=== PATIENT | male | born 1985 | race Caucasian/White ===

== ENCOUNTER 2018-04-19 21:36 | Emergency (ER) | payer OTHER ==
[2018-04-19 21:59] VITALS: BP 145/96
[2018-04-19] MEDS ORDERED: Ciprofloxacin TAB* 500 MG PO ONE ×2 (23:00→23:03)
--- NOTE | 2018-04-19 23:04 | UC ---
Complaint Male HPI - HPI Summary HPI Summary: 33 yo WM p/w left flank pain associated with dysuria, urinary frequency and urgency, chills x 2-3 days - History of Current Complaint Chief Complaint: UCGU Stated Complaint: BACK PAIN Time Seen by Provider: 04/19/18 22:12 Hx Obtained From: Patient Onset/Duration: Sudden Onset Timing: Lasting Days Severity Initially: Moderate Severity Currently: Moderate Pain Intensity: 8 - Allergies/Home Medications Allergies/Adverse Reactions: Allergies Allergy/AdvReac Type Severity Reaction Status Date / Time No Known Allergies Allergy Verified 04/19/18 21:59 PMH/Surg Hx/FS Hx/Imm Hx - Additional Past Medical History Additional PMH: none Previously Healthy: Yes - Surgical History Surgical History: Yes Surgery Procedure, Year, and Place: cleft palate repaired at 18 months of age. - Family History Known Family History: Positive: Hypertension - Social History Alcohol Use: Occasionally Substance Use Type: None Smoking Status (MU): Former Smoker Have You Smoked in the Last Year: No When Did the Patient Quit Smoking/Using Tobacco: 2007 - Immunization History Most Recent Influenza Vaccination: never Most Recent Tetanus Shot: UTD Review of Systems Constitutional: Negative Skin: Negative Eyes: Negative ENT: Negative Respiratory: Negative Cardiovascular: Negative Gastrointestinal: Negative Genitourinary: Dysuria, Frequency, Urgency, Other - foul smelling urine Motor: Negative Neurovascular: Negative Musculoskeletal: Negative Neurological: Negative Psychological: Negative All Other Systems Reviewed And Are Negative: Yes Physical Exam Triage Information Reviewed: Yes Appearance: Pain Distress Vital Signs: Initial Vital Signs Temp 36.5 C 04/19/18 21:56 Pulse 63 04/19/18 21:56 Resp 12 04/19/18 21:56 BP 145/96 04/19/18 21:56 Pulse Ox 97 04/19/18 21:56 Vital Signs Reviewed: Yes ENT Exam: Normal Neck: Positive: Supple Respiratory Exam: Normal Cardiovascular Exam: Normal Cardiovascular: Positive: RRR Abdomen Description: Positive: Soft, CVA Tenderness (L), Other: - left flank tenderness Musculoskeletal Exam: Normal Neurological Exam: Normal Psychological Exam: Normal Skin Exam: Normal Complaint Male Course/Dx - Course Course Of Treatment: UE with trace LE, foul smelling urine with left CVA tenderness- will tx for new onset pyelonephritis - Differential Dx/Diagnosis Provider Diagnoses: left pyelonephritis. UTI in male Discharge - Sign-Out/Discharge Documenting (check all that apply): Discharge/Admit/Transfer - Discharge Plan Condition: Stable Disposition: HOME Prescriptions: Ciprofloxacin TAB* [Cipro 500 MG TAB*] 500 mg PO BID 14 Days #28 tab Patient Education Materials: Urinary Tract Infection in Men (ED), Kidney Infection (ED) Additional Instructions: drink large amount of fluids, take medication as directed - Billing Disposition and Condition Condition: STABLE Disposition: HOME
[2018-04-19] MEDS ORDERED: HYDROcodone/ACETAMIN 5-325 MG* 1 TAB PO ONE (23:08)
[2018-04-19] MEDS ORDERED: Ondansetron ODT TAB* 4 MG PO ONE ×2 (23:13→23:39)
[2018-04-19] MEDS ORDERED: Ondansetron INJ* 2 MG/ML VIAL IM ONE (23:14)
== END 2018-04-19 23:55 | disposition home or self-care (01) ==
LOC: UCEAST 21:36
DX: N12 Tubulo-interstitial nephritis, not specified as acute or chronic (principal); N39.0 Urinary tract infection, site not specified; Z87.891 Personal history of nicotine dependence
CPT/HCPCS: 81003; 87086; 96372; 99212; A9270-GY; G0463; J2405

== ENCOUNTER 2018-04-20 03:39 | Emergency (ER) | payer OTHER ==
[2018-04-20] MEDS ORDERED: NS 0.9% 1000 ML* 1,000 ML IV ONE (04:00)
[2018-04-20] MEDS ORDERED: Ketorolac INJ* 30 MG/ML 1 ML VIAL IV ONE (04:00)
[2018-04-20] MEDS ORDERED: HYDROmorphone INJ* 2 MG/ML CARPUJECT SYRINGE IV SLOW PU ONE (04:00)
[2018-04-20] MEDS ORDERED: Metoclopramide IV* 5 MG/ML 2 ML VIAL IV ONE (04:00)
[2018-04-20 04:20] LABS: ABS Basophils 0 10^3/ul (0-0.2); ABS Eosinophils 0 10^3/ul (0-0.6); ABS Monocytes 0.6 10^3/ul (0-0.8); ABS Neutrophils 8.7 10^3/ul (1.5-7.7); ABS Nucleated RBC 0 10^3/ul; Eosinophil % 0.1 % (0-6); Hematocrit 43 % (42-52); Hemoglobin 14.9 g/dl (14.0-18.0); Lymphocyte % 9.7 % (25-47); Mean Corpuscular HGB Conc 35 g/dl (31-36); Mean Corpuscular Hemoglobin 31 pg (27-31); Mean Corpuscular Volume 87 fL (80-94); Mean Platelet Volume 7.9 um3 (7.4-10.4); Nucleated Red Blood Cells % 0; Platelet Count 249 10^3/ul (150-450); Red Blood Count 4.88 10^6/ul (4.0-5.4); Red Cell Distribution Width 13 % (10.5-15); White Blood Count 10.3 10^3/ul (3.5-10.8)
[2018-04-20 04:29] LABS: Urine Appearance Clear; Urine Blood Negative (Negative); Urine Color Yellow; Urine Ketones Trace (Negative); Urine Protein Negative (Negative); Urine Urobilinogen Negative (Negative)
[2018-04-20 04:32] LABS: EGFR Non-African American 44.6 (>60)
--- NOTE | 2018-04-20 05:44 | ED ---
Christina Berg Elizabeth, scribed for Le Islas MD on 04/20/18 at 0411 . GI/ HPI - HPI Summary HPI Summary: This patient is a 33 year old M presenting to [facility] with a chief complaint of left flank pain since 1 day ago. The patient was seen at Urgent Care 1 day ago for the same symptoms. The patient rates the pain 9/10 in severity. Symptoms aggravated by nothing. Symptoms alleviated by nothing. Patient reports diaphoresis, vomiting, feeling of bladder fullness but inability to void. - History of Current Complaint Chief Complaint: EDFlankPain Time Seen by Provider: 04/20/18 03:50 Stated Complaint: VOMITING Hx Obtained From: Patient Onset/Duration: Started Days Ago - 1 day ago Timing: Constant, Lasting Hours Severity: Moderate Current Severity: Moderate Pain Intensity: 9 Location of Pain: Flank - left flank Associated Signs and Symptoms: Positive: Vomiting, Diaphoresis, Flank Pain - left flank pain, Other: - inability to voi Aggravating Factor(s): Nothing Alleviating Factor(s): Nothing - Allergy/Home Medications Allergies/Adverse Reactions: Allergies Allergy/AdvReac Type Severity Reaction Status Date / Time No Known Allergies Allergy Verified 04/20/18 04:08 PMH/Surg Hx/FS Hx/Imm Hx Endocrine/Hematology History: Denies: Hx Diabetes, Hx Thyroid Disease Cardiovascular History: Denies: Hx Hypertension Respiratory History: Reports: Hx Asthma - uses albuterol as needed Denies: Hx Chronic Obstructive Pulmonary Disease (COPD) GI History: Denies: Hx Ulcer - Surgical History Surgery Procedure, Year, and Place: cleft palate repaired at 18 months of age. Infectious Disease History: No Infectious Disease History: Denies: Hx Hepatitis, Hx Human Immunodeficiency Virus (HIV), History Other Infectious Disease, Traveled Outside the [place] in Last 30 Days - Family History Known Family History: Positive: Hypertension - Social History Alcohol Use: Occasionally Substance Use Type: Reports: None Smoking Status (MU): Former Smoker Have You Smoked in the Last Year: No Review of Systems Positive: Skin Diaphoresis Negative: Epistaxis Negative: Chest Pain Positive: Vomiting Positive: flank pain - left flank pain, other - inability to void All Other Systems Reviewed And Are Negative: Yes Physical Exam - Summary Physical Exam Summary: VITAL SIGNS: Reviewed. GENERAL: ~Patient is a well-developed and nourished male who is lying comfortable in the stretcher. Patient is not in any acute respiratory distress. HEAD AND FACE: No signs of trauma. No ecchymosis, hematomas or skull depressions. No sinus tenderness. EYES: PERRLA, EOMI x 2, No injected conjunctiva, no nystagmus. EARS: Hearing grossly intact. Ear canals and tympanic membranes are within normal limits. MOUTH: Oropharynx within normal limits. NECK: Supple, trachea is midline, no adenopathy, no JVD, no carotid bruit, no c- spine tenderness, neck with full ROM. CHEST: Symmetric, no tenderness at palpation LUNGS: Clear to auscultation bilaterally. No wheezing or crackles. CVS: Regular rate and rhythm, S1 and S2 present, no murmurs or gallops appreciated. ABDOMEN: Soft. Left CVA tenderness. No signs of distention. No rebound no guarding, and no masses palpated. Bowel sounds are normal. EXTREMITIES: FROM in all major joints, no edema, no cyanosis or clubbing. NEURO: Alert and oriented x 3. No acute neurological deficits. Speech is normal and follows commands. SKIN: Dry and warm Triage Information Reviewed: Yes Vital Signs On Initial Exam: Initial Vitals Temp Pulse Resp BP Pulse Ox 97.1 F 63 22 135/93 100 04/20/18 03:41 04/20/18 03:41 04/20/18 03:41 04/20/18 03:41 04/20/18 03:41 Vital Signs Reviewed: Yes Diagnostics - Vital Signs Vital Signs Temp Pulse Resp BP Pulse Ox 04/20/18 03:41 97.1 F 63 22 135/93 100 - Laboratory Result Diagrams: 04/20/18 04:06 04/20/18 04:06 Lab Statement: Any lab studies that have been ordered have been reviewed, and results considered in the medical decision making process. - CT CT Abd/Pelvis CT Interpretation: Positive (See Comments) - Atrophic, scarred right kidney containing punctate stones. No ureterolithiasis or obstructive uropathy bilaterally. No bladder calculi. Dr. Islas has reviewed this report. CT Interpretation Completed By: Radiologist Re-Evaluation - Re-Evaluation 1st re-evaluation Re-Evaluation Time: 05:29 Change: Improved Comment: Discussed imaging and lab results with the patient. The patient is feeling better after being given pain medication. GIGU Course/Dx - Course Course Of Treatment: CT Abd/Pelvis reveals, per radiologist, atrophic, scarred right kidney containing punctate stones. No ureterolithiasis or obstructive uropathy bilaterally. ED physician has reviewed this radiology report. Test results with no significant abnormalities except for elevated creatinine. In the ED course the patient was given IV fluids, Dilaudid, Toradol, and Reglan.The lab and imaging results failed to explain his pain. Follow up with pcp and mechanical maintenance foreman. Patient will be discharged home with dx of renal insufficiency and flank pain and with follow up from Dr. Quevedo, mechanical maintenance foreman, and primary care physician. The patient is agreeable with this plan. - Diagnoses Provider Diagnoses: Renal insufficiency, Flank pain Discharge - Sign-Out/Discharge Documenting (check all that apply): Discharge/Admit/Transfer - Discharge Plan Condition: Stable Disposition: HOME Patient Education Materials: Flank Pain (ED) Referrals: [facility] REFERRAL [Outside] - 2 Days Georgi Peña MD [Medical Doctor] - 1 Day Additional Instructions: Follow up with Dr. Peña, mechanical maintenance foreman, in 1 day. Return to the emergency department with any new or worsening symptoms. The documentation as recorded by the Christina hay Elizabeth accurately reflects the service I personally performed and the decisions made by , Le Islas MD.
[2018-04-20 06:21] VITALS: BP 117/64
--- NOTE | 2018-04-20 08:08 | RAD ---
CLINICAL HISTORY: Left flank pain with vomiting COMPARISON: August 07, 2012 TECHNIQUE: Multiple contiguous axial CT scans were obtained of the abdomen and pelvis, without intravenous contrast enhancement. Coronal and sagittal multiplanar reformations are submitted for review. Oral contrast was not administered. FINDINGS: The study is limited by the lack of intravenous contrast. This limits evaluation of the solid organs and vasculature. LUNG BASES: The lung bases are clear. LIVER: The liver is normal in shape, size, contour, and attenuation. BILE DUCTS: There is no intrahepatic or extrahepatic biliary dilatation. GALLBLADDER: The gallbladder is normal, without pericholecystic inflammatory change. PANCREAS: The pancreas is normal, without mass or ductal dilatation. SPLEEN: Normal in size and appearance. UPPER GI TRACT: Evaluation of the gastrointestinal tract is limited by incomplete gastric distention. The upper GI tract is unremarkable. SMALL BOWEL AND MESENTERY: The small bowel is normal in contour, course, and caliber. There is no obstruction or dilatation. COLON: The colon is normal in contour, course, caliber. There is no pericolonic inflammatory change. ADRENALS: Normal bilaterally. KIDNEYS: The right kidney is atrophic/hypoplastic, stable from the previous examination. There is no appreciable hydronephrosis or nephrolithiasis. BLADDER: The bladder is smooth in contour. PELVIC ORGANS: The prostate gland is normal. The seminal vesicles are symmetric. Vascular calcifications are noted in the pelvis. AORTA: The aorta is normal. IVC: Unremarkable LYMPH NODES: There is no lymphadenopathy by size criteria. ABDOMINAL WALL: There is no evidence for abdominal wall hernia. BONES AND SOFT TISSUES: Unremarkable OTHER: None IMPRESSION: NO APPRECIABLE HYDRONEPHROSIS OR NEPHROLITHIASIS.
== END 2018-04-20 06:22 | disposition home or self-care (01) ==
LOC: ED 03:39
DX: N28.9 Disorder of kidney and ureter, unspecified (principal); R10.9 Unspecified abdominal pain; N26.1 Atrophy of kidney (terminal); R79.89 Other specified abnormal findings of blood chemistry; Z87.891 Personal history of nicotine dependence
CPT/HCPCS: 36415; 74176; 80053; 81003; 83735; 85025; 86140; 96361; 96374; 96375; 99283; J1170; J1885; J2765

== ENCOUNTER 2018-04-20 22:06 | Observation (INO) | payer OTHER ==
[2018-04-20 22:41] LABS: Urine Appearance Clear; Urine Blood Negative (Negative); Urine Color Yellow; Urine Ketones 1+ (Negative); Urine Protein Negative (Negative); Urine Specific Gravity 1.012 (1.010-1.030); Urine Urobilinogen Negative (Negative)
[2018-04-21] MEDS ORDERED: NS 0.9% 1000 ML* 1,000 ML IV ONE (00:12)
[2018-04-21] MEDS ORDERED: Morphine INJ* 4 MG/ML 1 ML CARPUJECT IV ONE (00:12)
[2018-04-21] MEDS ORDERED: Pantoprazole IV* 40 MG IV ONE (00:12)
[2018-04-21] MEDS ORDERED: Metoclopramide IV* 5 MG/ML 2 ML VIAL IV ONE (00:12)
[2018-04-21 00:33] LABS: ABS Basophils 0 10^3/ul (0-0.2); ABS Eosinophils 0 10^3/ul (0-0.6); ABS Monocytes 1.2 10^3/ul (0-0.8); ABS Neutrophils 15.1 10^3/ul (1.5-7.7); ABS Nucleated RBC 0 10^3/ul; Eosinophil % 0.2 % (0-6); Hematocrit 41 % (42-52); Hemoglobin 14.4 g/dl (14.0-18.0); Lymphocyte % 5.8 % (25-47); Mean Corpuscular HGB Conc 35 g/dl (31-36); Mean Corpuscular Hemoglobin 31 pg (27-31); Mean Corpuscular Volume 87 fL (80-94); Mean Platelet Volume 8.1 um3 (7.4-10.4); Nucleated Red Blood Cells % 0; Platelet Count 253 10^3/ul (150-450); Red Blood Count 4.71 10^6/ul (4.0-5.4); Red Cell Distribution Width 13 % (10.5-15); White Blood Count 17.4 10^3/ul (3.5-10.8)
[2018-04-21] MEDS ORDERED: Morphine VIAL* 4 MG/ML VIAL (1 ml vial) IV ONE (00:33)
[2018-04-21 00:46] LABS: EGFR Non-African American 44.3 (>60)
[2018-04-21] MEDS ORDERED: Ondansetron INJ* 2 MG/ML VIAL IV ONE (01:54)
[2018-04-21] MEDS ORDERED: Ondansetron ODT TAB* 4 MG ONE (01:56)
[2018-04-21] MEDS ORDERED: PROCHLORPERAZINE INJ 5 MG/ML 2 ML VIAL ONE (01:59)
[2018-04-21] MEDS ORDERED: PROCHLORPERAZINE INJ 5 MG/ML 2 ML VIAL IV ONE (02:01)
[2018-04-21] MEDS ORDERED: Iodixanol* (CONTRAST) 320 MG/ML 100 ML SDV IV ONE (03:01)
--- NOTE | 2018-04-21 04:41 | ED ---
Soledad Berg Rebecca, scribed for Le Islas MD on 04/21/18 at 0014 . Abdominal Pain/Male - HPI Summary HPI Summary: Pt is a 33 y/o M who presents to ED c/o L flank pain with N/V. 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 Pain is currently moderate, ranked 7/10. Sx aggravated by antiemetic (taken at 1999), alleviated by nothing. Prior similar episode yesterday for which he was treated by [facility] with Dilaudid, Toradol, Reglan and fluids which improved his sx and given a Dx of flank pain and renal insufficiency. Confirms that he was well all day today. No similar instances prior to yesterday's. Unsure of last BM - suspects it was yesterday. - History of Current Complaint Chief Complaint: EDFlankPain Stated Complaint: VOMITING/ABD PAIN Time Seen by Provider: 04/20/18 23:48 Hx Obtained From: Patient Onset/Duration: Lasting Hours, Still Present Severity Currently: Moderate Pain Intensity: 7 Pain Scale Used: 0-10 Numeric Location: Flank - Left Aggravating Factor(s): Other: - Antiemetic Alleviating Factor(s): Nothing Associated Signs And Symptoms: Positive: Nausea, Vomiting Similar Episode/Dx As:: Yesterday's episode - Allergies/Home Medications Allergies/Adverse Reactions: Allergies Allergy/AdvReac Type Severity Reaction Status Date / Time No Known Allergies Allergy Verified 04/20/18 22:14 PMH/Surg Hx/FS Hx/Imm Hx Endocrine/Hematology History: Denies: Hx Diabetes, Hx Thyroid Disease Cardiovascular History: Denies: Hx Hypertension Respiratory History: Reports: Hx Asthma - uses albuterol as needed Denies: Hx Chronic Obstructive Pulmonary Disease (COPD) GI History: Denies: Hx Ulcer - Surgical History Surgery Procedure, Year, and Place: cleft palate repaired at 18 months of age. Infectious Disease History: No Infectious Disease History: Denies: Hx Hepatitis, Hx Human Immunodeficiency Virus (HIV), History Other Infectious Disease, Traveled Outside the [place] in Last 30 Days - Family History Known Family History: Positive: Hypertension - Social History Alcohol Use: Occasionally Substance Use Type: Reports: None Smoking Status (MU): Former Smoker Have You Smoked in the Last Year: No Review of Systems Negative: Fever Positive: Vomiting, Nausea Positive: flank pain - Left All Other Systems Reviewed And Are Negative: Yes Physical Exam - Summary Physical Exam Summary: VITAL SIGNS: Reviewed. GENERAL: ~Patient is a well-developed and nourished male who is lying comfortable in the stretcher. Patient is not in any acute respiratory distress. HEAD AND FACE: No signs of trauma. No ecchymosis, hematomas or skull depressions. No sinus tenderness. EYES: PERRLA, EOMI x 2, No injected conjunctiva, no nystagmus. EARS: Hearing grossly intact. Ear canals and tympanic membranes are within normal limits. MOUTH: Oropharynx within normal limits. NECK: Supple, trachea is midline, no adenopathy, no JVD, no carotid bruit, no c- spine tenderness, neck with full ROM. CHEST: Symmetric, no tenderness at palpation LUNGS: Clear to auscultation bilaterally. No wheezing or crackles. CVS: Regular rate and rhythm, S1 and S2 present, no murmurs or gallops appreciated. ABDOMEN: Soft, LLQ and L CVA tenderness. No signs of distention. No rebound no guarding, and no masses palpated. Bowel sounds are normal. EXTREMITIES: FROM in all major joints, no edema, no cyanosis or clubbing. NEURO: Alert and oriented x 3. No acute neurological deficits. Speech is normal and follows commands. SKIN: Dry and warm Triage Information Reviewed: Yes Vital Signs On Initial Exam: Initial Vitals Temp Pulse Resp BP Pulse Ox 97.8 F 67 16 141/95 97 04/20/18 22:10 04/20/18 22:10 04/20/18 22:10 04/20/18 22:10 04/20/18 22:10 Vital Signs Reviewed: Yes Diagnostics - Vital Signs Vital Signs Temp Pulse Resp BP Pulse Ox 04/20/18 22:10 97.8 F 67 16 141/95 97 - Laboratory Lab Results: Lab Results 04/20/18 Range/Units 22:30 Urine Color Yellow Urine Appearance Clear Urine pH 6.0 (5-9) Ur Specific [place] 1.012 (1.010-1.030) Urine Protein Negative (Negative) Urine Ketones 1+ A (Negative) Urine Blood Negative (Negative) Urine Nitrate Negative (Negative) Urine Bilirubin Negative (Negative) Urine Urobilinogen Negative (Negative) Ur Leukocyte Esterase Negative (Negative) Urine Glucose Negative (Negative) Result Diagrams: 04/21/18 00:23 04/21/18 00:23 Lab Statement: Any lab studies that have been ordered have been reviewed, and results considered in the medical decision making process. - Radiology CXR Xray Interpretation: No Acute Changes - Negative. Pending official report. Radiology Interpretation Completed By: ED Physician - CT CT Abd/Pel CT Interpretation Completed By: Radiologist - Geographic areas of diminished enhancement in the left kidney possibly related to pyelonephritis. Atrophic changes in the right kidney with some urothelial thickening, which may reflect inflammation. Correlation with history and urinalysis is recommended. ED physician reviewed this report. Pending official report. - EKG 0406 Cardiac Rate: NL - 61 bpm EKG Rhythm: Sinus Rhythm EKG Interpretation: Normal axis. Normal interval. No ischemic changes. 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 Sx aggravated by antiemetic (taken at 1999). Prior similar episode yesterday for which he was treated by [facility] with Dilaudid, Toradol, Reglan and fluids which improved his sx and given a Dx of flank pain and renal insufficiency. Confirms that he was well all day today. No similar instances prior to yesterday's. Unsure of last BM - suspects it was yesterday. Blood work and UA were done. CXR reveals no acute findings. EKG is sinus rhythm with no ischemic changes. CT Abd/Pel findings above. In the ED course, pt received reglan, morphine, zofran, protonix , compazine, and fluids. Discussed care of pt with Dr. Real who accepts pt for admission. Pt will be admitted with Dx of infarction of right kidney. He understands and agrees. - Diagnoses Provider Diagnoses: Infarction of kidney - Provider Notifications Discussed Care Of Patient With: Les Real Time Discussed With Above Provider: 04:25 Instructed by Provider To: Other - Accepts pt for admission Discharge - Sign-Out/Discharge Documenting (check all that apply): Discharge/Admit/Transfer - Admit - Discharge Plan Condition: Fair Disposition: ADMITTED TO [facility] Referrals: No Primary Care Phys,NOPCP [Primary Care Provider] - The documentation as recorded by the oSledad hay Rebecca accurately reflects the service I personally performed and the decisions made by me, Le Islas MD.
[2018-04-21] MEDS ORDERED: Albuterol 2.5 MG/3 ML NEB.SOL* (0.083%) INH PRN (04:56)
[2018-04-21] MEDS ORDERED: Melatonin (NF) 3 MG TAB PO PRN (04:56)
[2018-04-21] MEDS ORDERED: Acetaminophen TAB* 325 MG PO PRN (04:56)
[2018-04-21] MEDS ORDERED: Ondansetron ODT TAB* 4 MG PO PRN ×2 (04:56→04:57)
[2018-04-21] MEDS ORDERED: HYDROmorphone INJ* 2 MG/ML CARPUJECT SYRINGE IV PRN (04:56)
[2018-04-21] MEDS ORDERED: NS 0.9% 1000 ML* 1,000 ML IV SCH (05:00)
--- NOTE | 2018-04-21 05:08 | HP ---
H&P (Free Text) History and Physical: PCP: none Date/Time: 04/21/2018 0500 CC: L flank pain HPI: Mr Melgoza is a 33YO male HX asthma presents with onset 2 days ago of L flank pain radiating to the L testicle for which he was seen on the evening of 04/20 at [facility] and [place]. He was given a Rx for ciprofloxacin, but did not get it filled. He had return of his pain this evening prompting re-evaluation. He reports some B/U/F of urine, N/V, F/C, sweats, but no chest pain/pressure, palpitations, SOB, or other issues. He denies history of similar. PMedHx asthma Ambulatory Orders Albuterol HFA INHALER* [Ventolin HFA Inhaler*] 2 puff INH Q4H PRN 11/07/12 Ciprofloxacin TAB* [Cipro 500 MG TAB*] 500 mg PO BID 14 Days #28 tab 04/19/18 Ondansetron ODT TAB* [Zofran 4 MG Odt TAB*] 4 mg PO Q6H PRN 5 Days #20 tab.odt 04/19/18 Allergies No Known Allergies Allergy (Verified 04/20/18 22:14) PSurgHx cleft palate repair SocHx: no tobacco, occasional alcohol, no recreational drugs; , lives with his , 3 children; works for [employer]; full code status FamHx: Mother: alive w/ asthma; Father: alive w/ AFIB & DM ROS: as above, otherwise reviewed and all were negative vitals: Vital Signs Temp 36.6 C 04/20/18 22:10 Pulse 53 04/21/18 04:00 Resp 16 04/21/18 00:39 BP 118/69 04/21/18 03:48 Pulse Ox 96 04/21/18 04:00 Intake & Output 04/20/18 04/20/18 04/21/18 11:59 23:59 11:59 Intake Total 1000 Balance 1000 Weight 81.647 kg 81.647 kg Intake: IV Fluids 1000 Constitutional: NAD, normally developed, well-nourished white male HEENM: atraumatic; sclera/conjunctiva: anicteric/clear; hearing: clinically intact; oropharynx: clear, mucosa moist Neck: soft tissue: non-tender; thyroid: normal Pulmonary: clear to auscultation bilaterally, good aeration, no accessory muscle use CV: BR/RR, normal S1S2, no carotid bruit, no jugular venous distention, 2+ B DP/ PT, no edema Abdominal: soft, non-distended, non-tender, no rebound/guarding/rigidity, normoactive bowel sounds, no hepatosplenomegaly or masses, mild/mod L costovertebral angle tenderness Musculoskeletal: general: grossly intact, non-tender Integumental: normal appearance and texture of exposed skin Psychiatric orientation: AA&O to PPS affect: calm mood: cooperative eye contact: fair content: reliable responses: timely insight: good Testing: Lab Results 04/20/18 04/21/18 04/21/18 Range/Units 22:30 00:23 00:23 WBC 17.4 H (3.5-10.8) 10^3/ul RBC 4.71 (4.0-5.4) 10^6/ul Hgb 14.4 (14.0-18.0) g/dl Hct 41 L (42-52) % MCV 87 (80-94) fL MCH 31 (27-31) pg MCHC 35 (31-36) g/dl RDW 13 (10.5-15) % Plt Count 253 (150-450) 10^3/ul MPV 8.1 (7.4-10.4) um3 Neut % (Auto) 87.2 H (38-83) % Lymph % (Auto) 5.8 L (25-47) % Gibson % (Auto) 6.7 (0-7) % Eos % (Auto) 0.2 (0-6) % Baso % (Auto) 0.1 (0-2) % Absolute Neuts (auto) 15.1 H (1.5-7.7) 10^3/ul Absolute Lymphs (auto) 1.0 (1.0-4.8) 10^3/ul Absolute Monos (auto) 1.2 H (0-0.8) 10^3/ul Absolute Eos (auto) 0 (0-0.6) 10^3/ul Absolute Basos (auto) 0 (0-0.2) 10^3/ul Absolute Nucleated RBC 0 10^3/ul Nucleated RBC % 0 Sodium 141 (139-145) mmol/L Potassium 3.5 (3.5-5.0) mmol/L Chloride 108 (101-111) mmol/L Carbon Dioxide 24 (22-32) mmol/L Anion Gap 9 (2-11) mmol/L BUN 16 (6-24) mg/dL Creatinine 1.76 H (0.67-1.17) mg/dL Est GFR ( Amer) 57.0 (>60) Est GFR (Non-Af Amer) 44.3 (>60) BUN/Creatinine Ratio 9.1 (8-20) Glucose 131 H (70-100) mg/dL Calcium 10.1 (8.6-10.3) mg/dL Magnesium 1.8 L (1.9-2.7) mg/dL Total Bilirubin 1.20 H (0.2-1.0) mg/dL AST 51 H (13-39) U/L ALT 44 (7-52) U/L Alkaline Phosphatase 67 (34-104) U/L C-Reactive Protein 6.89 H (< 5.00) mg/L Total Protein 7.2 (6.4-8.9) g/dL Albumin 4.6 (3.2-5.2) g/dL Globulin 2.6 (2-4) g/dL Albumin/Globulin Ratio 1.8 (1-3) Lipase 123 H (11.0-82.0) U/L Urine Color Yellow Urine Appearance Clear Urine pH 6.0 (5-9) Ur Specific [place] 1.012 (1.010-1.030) Urine Protein Negative (Negative) Urine Ketones 1+ A (Negative) Urine Blood Negative (Negative) Urine Nitrate Negative (Negative) Urine Bilirubin Negative (Negative) Urine Urobilinogen Negative (Negative) Ur Leukocyte Esterase Negative (Negative) Urine Glucose Negative (Negative) CXR, personally reviewed: no acute process CT abd/pel W, personally reviewed: IMPRESSION: Geographic areas of diminished enhancement in the left kidney possibly related to pyelonephritis. Atrophic changes in the right kidney with some urothelial thickening, which may reflect inflammation. Correlation with history and urinalysis is recommended. ED MD contacted radiology acquisitions analyst with information that patient's UA was negative and reports finding is most consistent with renal infarct. Impression: 33M presenting with L flank pain found to have a L renal infarct w/ NEGRA and R renal atrophy DIAGNOSIS & PLAN Primary sepsis (leukocytosis & fever) 2nd L pyelonephritis w/ L renal infarct & NEGRA : IV levofloxacin : IVFs : blood & urine CX : check ECHO : consider urology consult in AM : pain control : supportive care Secondary asthma, mild intermittent : PRN albuterol Admission Rational: inpatient for evaluation of acute L renal infarct of uncertain etiology not anticipated to be adequately evaluated w/i 48h to allow for discharge DVTp: ROXIE Code Status: full
[2018-04-21] MEDS: NS 0.9% 1000 ML* 1,500 ML IV SCH ×2 (05:50→07:11)
[2018-04-21] MEDS ORDERED: Omeprazole CAP* 20 MG PO SCH (06:00)
[2018-04-21] MEDS: traMADol TAB* 50 MG PO PRN ×3 (06:18→20:10)
[2018-04-21 06:32] LABS: Hematocrit 37 % (42-52); Hemoglobin 12.9 g/dl (14.0-18.0); Mean Corpuscular HGB Conc 35 g/dl (31-36); Mean Corpuscular Hemoglobin 30 pg (27-31); Mean Corpuscular Volume 87 fL (80-94); Mean Platelet Volume 8.3 um3 (7.4-10.4); Platelet Count 227 10^3/ul (150-450); Red Blood Count 4.26 10^6/ul (4.0-5.4); Red Cell Distribution Width 13 % (10.5-15); White Blood Count 13.9 10^3/ul (3.5-10.8)
[2018-04-21 06:42] LABS: EGFR Non-African American 54.9 (>60)
[2018-04-21] MEDS: Levofloxacin 750 MG IVPREMIX(* 750 MG/150 ML BAG IVPB SCH (07:11)
[2018-04-21 07:51] LABS: INR 0.98 (0.77-1.02)
--- NOTE | 2018-04-21 08:24 | RAD ---
HISTORY: Abdominal pain COMPARISONS: None VIEWS: 1: frontal portable view of the chest at 1:46 AM FINDINGS: LINES AND TUBES: None. CARDIOMEDIASTINAL SILHOUETTE: The cardiomediastinal silhouette is normal for portable technique. PLEURA: The costophrenic angles are sharp. No pleural abnormalities are noted. LUNG PARENCHYMA: The lungs are clear. ABDOMEN: The upper abdomen is clear. There is no subphrenic gas. BONES AND SOFT TISSUES: No bone or soft tissue abnormalities are noted. IMPRESSION: NO ACTIVE CARDIOPULMONARY DISEASE.
[2018-04-21] MEDS: Docusate CAP* 100 MG PO SCH ×2 (08:35→19:44)
--- NOTE | 2018-04-21 08:36 | RAD ---
CLINICAL HISTORY: ] Quadrant pain COMPARISON: April 20, 2018 TECHNIQUE: Multiple contiguous axial CT scans were obtained of the abdomen and pelvis after the administration of intravenous contrast. Coronal and sagittal multiplanar reformations are submitted for review. Oral contrast was not administered. Delayed images were obtained through the abdomen. FINDINGS: LUNG BASES: The lung bases are clear. LIVER: The liver is normal in shape, size, contour, and attenuation. BILE DUCTS: There is no intrahepatic or extrahepatic biliary dilatation. GALLBLADDER: The gallbladder is normal, without pericholecystic inflammatory change. PANCREAS: The pancreas is normal, without mass or ductal dilatation. SPLEEN: Normal in size and appearance. UPPER GI TRACT: Evaluation of the gastrointestinal tract is limited by incomplete gastric distention. The upper GI tract is unremarkable. SMALL BOWEL AND MESENTERY: The small bowel is normal in contour, course, and caliber. There is no obstruction or dilatation. COLON: The colon is normal in contour, course, caliber. There is no pericolonic inflammatory change. ADRENALS: Normal bilaterally. KIDNEYS: There is wedge-shaped hypoenhancement of the left kidney involving the anterior mid and lower left kidney. The right kidney is atrophic/hypoplastic. BLADDER: The bladder is smooth in contour. PELVIC ORGANS: The prostate gland is normal. The seminal vesicles are symmetric. AORTA: The aorta is normal. IVC: Unremarkable LYMPH NODES: There is no lymphadenopathy by size criteria. ABDOMINAL WALL: There is no evidence for abdominal wall hernia. BONES AND SOFT TISSUES: The bones and soft tissues are unremarkable. OTHER: None IMPRESSION: THERE IS WEDGE-SHAPED HYPOENHANCEMENT OF THE LEFT KIDNEY. THE DIFFERENTIAL INCLUDES RENAL INFARCT. GEOGRAPHIC HYPOENHANCEMENT SECONDARY TO PYELONEPHRITIS IS ALSO WITHIN THE DIFFERENTIAL. PRELIMINARY FINDINGS WERE REVIEWED WITH PAYTON IN THE EMERGENCY DEPARTMENT AT APPROXIMATELY 8:30 AM ON APRIL 21, 2010
--- NOTE | 2018-04-21 08:45 | PN ---
Progress Note - Progress Note Date of Service: 04/21/18 Note: Took call from Dr. Rowley with report of possibility of L renal Infarct. H and P through Dr. Rosas shows admission for renal infarct despite overnight read as likely pyelonephritis. Read from Dr. Rowley is below. IMPRESSION: THERE IS WEDGE-SHAPED HYPOENHANCEMENT OF THE LEFT KIDNEY. THE DIFFERENTIAL INCLUDES RENAL INFARCT. GEOGRAPHIC HYPOENHANCEMENT SECONDARY TO PYELONEPHRITIS IS ALSO WITHIN THE DIFFERENTIAL. PRELIMINARY FINDINGS WERE REVIEWED WITH PAYTON IN THE EMERGENCY DEPARTMENT AT APPROXIMATELY 8:30 AM ON APRIL 21, 2010
[2018-04-21] MEDS: oxyCODONE TAB* 5 MG TAB PO PRN ×3 (09:20→17:40)
[2018-04-21] MEDS: PROCHLORPERAZINE INJ 5 MG/ML 2 ML VIAL IV PRN ×2 (09:46→20:06)
[2018-04-21] MEDS: NS 0.9% 1000 ML* 1,000 ML IV SCH ×2 (09:46→16:04)
--- NOTE | 2018-04-21 10:11 | PN ---
Subjective Date of Service: 04/21/18 Interval History: Pain somewhat less today. He took his temp at home and says he didn't have a fever. Never smoked. Drinks a few drinks on the weekend. His father has A fib. No other relevant family hx. Objective Active Medications: Acetaminophen (Tylenol Tab*) 650 mg PO Q6H PRN PRN Reason: FEVER/PAIN Albuterol (Ventolin 2.5 Mg/3 Ml Neb.Tiffany*) 2.5 mg INH Q2H PRN PRN Reason: SOB/WHEEZING Docusate Sodium (Colace Cap*) 100 mg PO BID ON LICENSE OF [facility] Last Admin: 04/21/18 08:35 Dose: 100 mg Hydromorphone HCl (Dilaudid Inj*) 0.5 mg IV Q2H PRN PRN Reason: PAIN Levofloxacin/Dextrose (Levaquin 750 Mg Ivpremix(*)) 750 mg in 150 mls @ 100 mls /hr IVPB Q24H ON LICENSE OF [facility] Last Admin: 04/21/18 07:11 Dose: 100 mls/hr Sodium Chloride (Ns 0.9% 1000 Ml*) 1,500 mls @ 0 mls/hr IV WIDE OPEN ON LICENSE OF [facility] PRN Reason: Wide Open Last Admin: 04/21/18 07:11 Dose: 999 mls/hr Sodium Chloride (Ns 0.9% 1000 Ml*) 1,000 mls @ 75 mls/hr IV PER RATE ON LICENSE OF [facility] Last Admin: 04/21/18 09:46 Dose: 75 mls/hr Oxycodone HCl (Roxycodone Tab*) 5 mg PO Q4H PRN PRN Reason: PAIN Last Admin: 04/21/18 09:20 Dose: 5 mg Prochlorperazine Edisylate (Compazine Inj*) 10 mg IV Q6H PRN PRN Reason: NAUSEA/VOMITING Last Admin: 04/21/18 09:46 Dose: 10 mg Tramadol HCl (Ultram*) 50 mg PO Q6H PRN PRN Reason: PAIN Last Admin: 04/21/18 06:18 Dose: 50 mg Vital Signs - 8 hr 04/21/18 04/21/18 04/21/18 05:09 05:10 05:15 Temperature 100.6 F Pulse Rate 73 67 56 Respiratory 16 Rate Blood Pressure 132/75 132/75 (mmHg) O2 Sat by Pulse 96 96 96 Oximetry 05/26/18 05/26/18 05/26/18 05:21 05:46 06:18 Temperature 97.9 F Pulse Rate 67 Respiratory 16 16 16 Rate Blood Pressure 134/73 (mmHg) O2 Sat by Pulse 99 Oximetry 04/21/18 04/21/18 04/21/18 07:28 07:30 08:00 Temperature 99.5 F Pulse Rate 65 Respiratory 16 16 16 Rate Blood Pressure 132/68 (mmHg) O2 Sat by Pulse 98 Oximetry 04/21/18 04/21/18 08:15 09:20 Temperature Pulse Rate Respiratory 18 18 Rate Blood Pressure (mmHg) O2 Sat by Pulse Oximetry Oxygen Devices in Use Now: None Appearance: Alert, supine in bed. In good spirits. Looks comfortable. Eyes: No Scleral Icterus Respiratory: Symmetrical Chest Expansion and Respiratory Effort, Clear to Auscultation, Clear to Percussion Cardiovascular: NL Sounds; No Murmurs; No JVD, RRR, No Edema, - Extremities: No Edema, No Clubbing, Cyanosis, - Skin: No Rash or Ulcers, No Nodules or Sclerosis, - Neurological: Alert and Oriented x 3, NL Sensation Result Diagrams: 04/21/18 06:17 04/21/18 06:17 Additional Lab and Data: Lab Results 04/20/18 Range/Units 22:30 Urine Color Yellow Urine Appearance Clear Urine pH 6.0 (5-9) Ur Specific [place] 1.012 (1.010-1.030) Urine Protein Negative (Negative) Urine Ketones 1+ A (Negative) Urine Blood Negative (Negative) Urine Nitrate Negative (Negative) Urine Bilirubin Negative (Negative) Urine Urobilinogen Negative (Negative) Ur Leukocyte Esterase Negative (Negative) Urine Glucose Negative (Negative) Assess/Plan/Problems-Billing Assessment: - Patient Problems (1) Renal infarction Current Visit: Yes Status: Acute Code(s): N28.0 - ISCHEMIA AND INFARCTION OF KIDNEY SNOMED Code(s): 41626622 Comment: Likely embolic source. Echo will be done 04/22. Continue levofloxacin pending final urine C&S. Plan hypercoag panel 04/24 if no dx by then. (2) NEGRA (acute kidney injury) Current Visit: Yes Status: Acute Code(s): N17.9 - ACUTE KIDNEY FAILURE, UNSPECIFIED SNOMED Code(s): 98249746 Comment: Improved. Decrease IV to 75 ml/hr. BMP 04/22.
[2018-04-22] MEDS: oxyCODONE TAB* 5 MG TAB PO PRN ×2 (04:24→11:36)
[2018-04-22] MEDS: Levofloxacin 750 MG IVPREMIX(* 750 MG/150 ML BAG IVPB SCH (05:33)
[2018-04-22] MEDS: NS 0.9% 1000 ML* 1,000 ML IV SCH (05:37)
[2018-04-22] MEDS: Docusate CAP* 100 MG PO SCH (07:46)
[2018-04-22] MEDS: PROCHLORPERAZINE INJ 5 MG/ML 2 ML VIAL IV PRN (07:46)
[2018-04-22] MEDS: traMADol TAB* 50 MG PO PRN (08:11)
[2018-04-22 11:39] VITALS: BP 139/85
--- NOTE | 2018-04-22 13:18 | ECHO ---
Patient: P[facility] Rec#: [id number] : 1985 Date: 04/22/2018 Age: 33y Height: 180.34 cm / 71.0 in Weight: 81.65 kg / 180.0 lbs Sex: M BSA: 2.02 Room#: 445 Admit Date#: 04/21/2018 Type: Inpatient Referring: Les Real MD Reading: Ronda Varghese MD Devops Architect: Lianne Smyth RD,RDMS Transthoracic Echocardiogram Indication: Peripheral embolic event BP: 130/70 HR: 61 Rhythm: NSR Findings History: Asthma Technical Comments: The study quality is good. Left Ventricle: The left ventricular chamber size is normal. There is no left ventricular hypertrophy. There is normal left ventricular systolic function. The estimated ejection fraction is 55-60%. Normal left ventricular diastolic filling is observed. Left Atrium: The left atrium is mildly dilated. Right Ventricle: The right ventricular chamber size and systolic function are within normal limits. Right Atrium: The right atrium is mildly dilated. The bubble study is negative. A patent foramen ovale is not demonstrated with color Doppler and agitated contrast. There is evidence of an atrial septal aneurysm. Aortic Valve: The aortic valve is trileaflet. Systolic excursion of the aortic valve is normal. There is no evidence of aortic regurgitation. There is no evidence of aortic stenosis. Mitral Valve: The mitral valve leaflets do not appear thickened. There is a trace of mitral regurgitation. There is no evidence of mitral stenosis. Tricuspid Valve: The tricuspid valve leaflets are normal. There is trace tricuspid regurgitation. Unable to estimate the right ventricular systolic pressure. Pulmonic Valve: The pulmonic valve appears normal. There is a trace pulmonic regurgitation. Pericardium: There is no significant pericardial effusion. Aorta: The aortic root appears normal. There is no dilatation of the aortic arch. Pulmonary Artery: The main pulmonary artery is not well visualized. Venous: The inferior vena cava appears normal in size. There is a greater than 50% respiratory change in the inferior vena cava dimension. Contrast: Intravenous agitated saline contrast was used to assess intracardiac shunting. Summary: There was not any prior study for comparison. Conclusions The left ventricular chamber size is normal. The estimated ejection fraction is 55-60%. The left atrium is mildly dilated. The right atrium is mildly dilated. A patent foramen ovale is not demonstrated with color Doppler and agitated contrast. There is a trace of mitral regurgitation. There is trace tricuspid regurgitation. There is a trace pulmonic regurgitation. Measurements Name Value Normal Range RVIDd (AP) 2D 3.1 cm (0.9 - 2.6) RVDdMajor (2D) 2.7 cm (2.2 - 4.4) RAd ISD 4CH 5.5 cm (3.4 - 4.9) RA (A4C)W 3.2 cm (2.9 - 4.6) IVSd (2D) 1 cm (0.6 - 1) LVPWd (2D) 1.1 cm (0.6 - 1) LVIDd (2D) 5.1 cm (3.6 - 5.4) LVIDs (2D) 2.9 cm - LV FS (2D) 43 % (25 - 45) Aortic Annulus 2.1 cm (1.4 - 2.6) Ao root diameter (2D) 2.3 cm (2.1 - 3.5) Ascending Ao 2.6 cm (2.1 - 3.4) Aortic arch 2.5 cm (1.8 - 3.4) LA dimension (AP) 2D 3.3 cm (2.3 - 3.8) LAd ISD 4CH 5 cm (2.9 - 5.3) LA ISD 4CH W 4.6 cm (2.5 - 4.5) Name Value Normal Range LA ESV SP 4CH (A/L) 79.8 ml - LA ESV SP 2CH (A/L) 106.95 ml - LA ESV BP (A/L) 100.24 ml - LA ESV BP (A/L) index 47 ml/m2 - LA ESV SP 4CH (MOD) 66.32 ml - LA ESV SP 2CH (MOD) 98.53 ml - Name Value Normal Range MV E-wave Vmax 0.9 m/sec - MV deceleration time 199 msec - MV A-wave Vmax 0.4 m/sec - MV E:A ratio 2.3 ratio - P. vein S-wave Vmax 0.7 m/sec - P. vein D-wave Vmax 0.6 m/sec - P. vein S:D Vmax ratio 1.2 ratio - P. vein A-wave duration 128 msec - LV septal e' Vmax 0.12 m/sec - LV lateral e' Vmax 0.13 m/sec - LV E:e' septal ratio 7.5 ratio - LV E:e' lateral ratio 7 ratio - Name Value Normal Range AV Vmax 1.5 m/sec - AV VTI 33.3 cm - AV peak gradient 9 mmHg - AV mean gradient 4.9 mmHg - LVOT Vmax 1.3 m/sec - LVOT VTI 29 cm - LVOT peak gradient 7 mmHg - LVOT mean gradient 2.8 mmHg - LEELA Vmax 1.4 m/sec - Name Value Normal Range RAP 8 mmHg - IVC diameter 1.7 cm - Name Value Normal Range PV Vmax 1 m/sec - PV peak gradient 4 mmHg -
[2018-04-22] MEDS ORDERED: Iodixanol* (CONTRAST) 320 MG/ML 100 ML SDV IV ONE (13:33)
--- NOTE | 2018-04-22 13:57 | PN ---
"Progress Note - Progress Note Date of Service: 04/22/18 Note: Search Terms: ja santos, 1985 Search Date: 04/22/2018 01:56:35 PM The Drug Utilization Report below displays all of the controlled substance prescriptions, if any, that your patient has filled in the last twelve months. The information displayed on this report is compiled from pharmacy submissions to the Department, and accurately reflects the information as submitted by the pharmacies. This report was requested by: Yohannes Lujan | Reference #: [id number] There are no results for the search terms that you entered. Time spent on discharge 45 minutes."
[2018-04-22] MEDS ORDERED: Aspirin 81 mg CHEW TAB* 81 MG TAB.CHEW PO SCH (14:00)
--- NOTE | 2018-04-22 14:06 | RAD ---
INDICATION: Renal infarction. COMPARISON: CT abdomen pelvis April 21, 2018 TECHNIQUE: Axial source images were obtained from the thoracic inlet to the hemidiaphragms following administration of 9 mL Visipaque [address] angiographic technique was utilized. Coronal and sagittal reconstructed images were acquired. CHEST FINDINGS: Neck/thyroid: The visualized neck to include the thyroid appear normal. Chest wall: There are no acute abnormalities of the bony thorax or chest wall. There is no supraclavicular, infraclavicular, or axillary lymphadenopathy. Lungs : There are no pulmonary parenchymal masses or infiltrates. The pulmonary interstitium appears normal. There are no endobronchial lesions. Cardiomediastinal structures: There is no CT evidence of acute pulmonary embolic disease. The heart is normal in size. There is no pericardial effusion. There is no evidence of aortic aneurysm or dissection. There are no CT angiogram abnormalities of the arch or the great vessels arising from the arch. The superior and inferior mesenteric arteries are widely patent. There are multiple renal arteries bilaterally with 3 on the left and 3 in the right. The arteries appear patent There is no mediastinal or hilar adenopathy. The esophagus appears normal. Pleura : There are no pleural-based masses or effusions. Other: As noted previously there is hypoperfusion of the midpole left kidney as previously described. This may be related to evolving infarct. The right kidney is atrophic and there are multiple areas of renal scarring the remainder of the visualized abdomen is unremarkable. IMPRESSION: 1. No CT evidence of atherosclerotic change of the thoracic aorta, aortic aneurysm or dissection. 2. The great vessels from the aorta and visceral branches appear widely patent with multiple bilateral renal arteries. 3. Presumed evolving infarct left kidney. Evidence of prior infarcts of the right kidney with an atrophic right kidney. 4. No CT evidence of acute pulmonary embolic disease.
--- NOTE | 2018-04-22 20:49 | DS ---
CC: Dr. Enoch Oscar, Externalist Office DISCHARGE SUMMARY: DATE OF ADMISSION: DATE OF DISCHARGE: 04/22/18 HOSPITAL COURSE: This 33-year-old man presented after 2 days of left flank pain. He went to the emergency room on 04/20/18. He was given a prescription for Cipro and released. During that stay, he had a CT scan without contrast. This did not show any nephrolithiasis or hydronephrosis. He returned in less than 12 hours with continued pain. The pain was really steady and not colicky. This time, he had a CT scan with intravenous contrast. This showed a wedge- shaped area of hypoenhancement in the left kidney. I spoke to the radiologist, it was most compatible with renal infarction, although there was a possibility that pyelonephritis could mimic this. However, the patient's urine culture and 2 blood cultures were negative. He had one temperature of 100.6 on 04/21/18, but was under 99 degrees the rest of his hospital stay. Clinically, I do not think he had pyelonephritis, which should be unusual in a young healthy man without any anatomic abnormalities or stones. Of course, renal infarction is also an unusual disease, but this most compatible with the diagnostic test. The patient had a transthoracic echocardiogram, which was normal. As mentioned above, he had 1 set of blood cultures reported as negative. Urine culture from 04/19/18 was no growth. His white count was 17.4 with a repeat of 13.9. His creatinine was 1.75 and improved to 1.28 by the day of discharge. His pain gradually resolved. He was given a prescription for 10 oxycodone 5 mg to use 1 every 4 hours p.r.n. He did not have complete resolution of the pain at the time of this discharge. I discussed the case with the vascular surgeon on-call at [facility]. I accept from the vascular surgery point of view what they will do would be a CTA of the thoracic aorta up from the renal arteries to the heart to make sure there is no atheroma or other lesion that could be throwing off emboli to the renal artery. The patient will come as an outpatient on the first business day, which should be 04/24/18 for a hypercoag panel. He will see the externalist, at which time, if indicated, a 30-day event monitor and a COREY will be arranged. Lipid profile showed LDL of 68, HDL 48, cholesterol 134, triglycerides 101. He will need a PCP and an appointment with Dr. Peña. I discussed the case with Dr. Peña. The patient was started on aspirin 81 mg daily on the day of discharge. FINAL DIAGNOSIS: Renal infarction. DISCHARGE MEDICATIONS: 1. Aspirin 81 mg daily. 2. Oxycodone 5 mg every 6 hours p.r.n. [id number]/[facility] #: [id number] [facility] HOSPITALQuang
== END 2018-04-22 15:21 | disposition home or self-care (01) ==
LOC: ED 22:06 → INTOOBSV 04-21 04:52 → MEDTELE 04-21 04:52
PROVIDERS: ADMIT Hospitalist; ATTEND Internal Medicine
DX: A41.9 Sepsis, unspecified organism (principal); N28.0 Ischemia and infarction of kidney; N12 Tubulo-interstitial nephritis, not specified as acute or chronic; N17.9 Acute kidney failure, unspecified; R10.84 Generalized abdominal pain; R11.2 Nausea with vomiting, unspecified; Z87.09 Personal history of other diseases of the respiratory system; Z87.891 Personal history of nicotine dependence
CPT/HCPCS: 36415; 71045; 71275; 74175; 74177; 80048; 80053; 80061; 81003; 83605; 83615; 83690; 83735; 85025; 85027; 85610; 85730; 86140; 87040; 87086; 93005; 93306; 99284; A9270-GY; G0378; J0780; J2270; J2765; Q9967

== ENCOUNTER 2018-04-23 19:12 | Emergency (ER) | payer OTHER ==
[2018-04-23] MEDS ORDERED: Metoclopramide IV* 5 MG/ML 2 ML VIAL IV SLOW PU ONE (20:01)
[2018-04-23] MEDS ORDERED: NS 0.9% 1000 ML* 1,000 ML IV ONE (20:01)
[2018-04-23 20:16] LABS: ABS Basophils 0 10^3/ul (0-0.2); ABS Eosinophils 0 10^3/ul (0-0.6); ABS Lymphocytes 0.6 10^3/ul (1.0-4.8); ABS Monocytes 0.5 10^3/ul (0-0.8); ABS Neutrophils 7.3 10^3/ul (1.5-7.7); ABS Nucleated RBC 0 10^3/ul; Eosinophil % 0.1 % (0-6); Hematocrit 43 % (42-52); Hemoglobin 14.8 g/dl (14.0-18.0); Lymphocyte % 7.4 % (25-47); Mean Corpuscular HGB Conc 34 g/dl (31-36); Mean Corpuscular Hemoglobin 30 pg (27-31); Mean Corpuscular Volume 87 fL (80-94); Mean Platelet Volume 8.3 um3 (7.4-10.4); Nucleated Red Blood Cells % 0; Platelet Count 281 10^3/ul (150-450); Red Blood Count 4.93 10^6/ul (4.0-5.4); Red Cell Distribution Width 13 % (10.5-15); White Blood Count 8.5 10^3/ul (3.5-10.8)
[2018-04-23 20:34] LABS: EGFR Non-African American 47.7 (>60)
[2018-04-23 21:28] LABS: Urine Appearance Clear; Urine Blood 2+ (Negative); Urine Color Yellow; Urine Ketones 2+ (Negative); Urine Protein 1+(30 mg/dL) (Negative); Urine Specific Gravity 1.021 (1.010-1.030); Urine Urobilinogen Positive (Negative)
--- NOTE | 2018-04-23 22:05 | ED ---
Cathy Berg Emily, scribed for Le Islas MD on 04/23/18 at 1954 . GI/ HPI - HPI Summary HPI Summary: This patient is a 33 year old M [facility] [place] [place] with a chief complaint of nausea and vomiting that began at 1400 today following a dose of prescribed oxycodone. The patient rates the pain 6/10 in severity. Symptoms aggravated by nothing. Symptoms alleviated by nothing. Pt reports taking the oxycodone with a small amount of cheese. Pt reports he was recently admitted for NEGRA, and discharged yesterday. - History of Current Complaint Chief Complaint: EDNauseaVomitDiarrh Time Seen by Provider: 04/23/18 19:51 Stated Complaint: VOMITING/ABD AND BACK PAIN Hx Obtained From: Patient Onset/Duration: Started Hours Ago, Still Present Timing: Constant Severity: Moderate Current Severity: Moderate Pain Intensity: 6 Associated Signs and Symptoms: Positive: Nausea, Vomiting Aggravating Factor(s): Nothing Alleviating Factor(s): Nothing - Additional Pertinent History Primary Care Physician: NEL - Allergy/Home Medications Allergies/Adverse Reactions: Allergies Allergy/AdvReac Type Severity Reaction Status Date / Time No Known Allergies Allergy Verified 04/23/18 19:21 PMH/Surg Hx/FS Hx/Imm Hx Previously Healthy: No Endocrine/Hematology History: Denies: Hx Diabetes, Hx Thyroid Disease Cardiovascular History: Denies: Hx Hypertension Respiratory History: Reports: Hx Asthma - uses albuterol as needed Denies: Hx Chronic Obstructive Pulmonary Disease (COPD) GI History: Denies: Hx Ulcer Sensory History: Denies: Hx Contacts or Glasses, Hx Hearing Aid Opthamlomology History: Denies: Hx Contacts or Glasses - Surgical History Surgery Procedure, Year, and Place: cleft palate repaired at 18 months of age. - Immunization History Date of Tetanus Vaccine: utd Date of Influenza Vaccine: none Infectious Disease History: No Infectious Disease History: Denies: Hx Hepatitis, Hx Human Immunodeficiency Virus (HIV), History Other Infectious Disease, Traveled Outside the [place] in Last 30 Days - Family History Known Family History: Positive: Hypertension - Social History Occupation: Employed Full-time Lives: With Family Alcohol Use: Occasionally Substance Use Type: Reports: None Smoking Status (MU): Former Smoker Have You Smoked in the Last Year: No Review of Systems Negative: Fever Positive: Vomiting, Nausea All Other Systems Reviewed And Are Negative: Yes Physical Exam - Summary Physical Exam Summary: VITAL SIGNS: Reviewed. GENERAL: ~Patient is a well-developed and nourished male who is lying comfortable in the stretcher. Patient is not in any acute respiratory distress. HEAD AND FACE: No signs of trauma. No ecchymosis, hematomas or skull depressions. No sinus tenderness. EYES: PERRLA, EOMI x 2, No injected conjunctiva, no nystagmus. EARS: Hearing grossly intact. Ear canals and tympanic membranes are within normal limits. MOUTH: Oropharynx within normal limits. NECK: Supple, trachea is midline, no adenopathy, no JVD, no carotid bruit, no c- spine tenderness, neck with full ROM. CHEST: Symmetric, no tenderness at palpation LUNGS: Clear to auscultation bilaterally. No wheezing or crackles. CVS: Regular rate and rhythm, S1 and S2 present, no murmurs or gallops appreciated. ABDOMEN: Soft, non-tender. No signs of distention. No rebound no guarding, and no masses palpated. Bowel sounds are normal. EXTREMITIES: FROM in all major joints, no edema, no cyanosis or clubbing. NEURO: Alert and oriented x 3. No acute neurological deficits. Speech is normal and follows commands. SKIN: Dry and warm Triage Information Reviewed: Yes Vital Signs On Initial Exam: Initial Vitals Temp Pulse Resp BP Pulse Ox 98.1 F 60 18 140/72 99 04/23/18 19:17 04/23/18 19:17 04/23/18 19:17 04/23/18 19:17 04/23/18 19:17 Vital Signs Reviewed: Yes Diagnostics - Vital Signs Vital Signs Temp Pulse Resp BP Pulse Ox 04/23/18 19:17 98.1 F 60 18 140/72 99 - Laboratory Result Diagrams: 04/23/18 20:03 04/23/18 20:03 Lab Statement: Any lab studies that have been ordered have been reviewed, and results considered in the medical decision making process. Re-Evaluation - Re-Evaluation First Eval Re-Evaluation Time: 21:30 Change: Unchanged Comment: Pt reports feeling "odd" but is not currently nauseous Second Eval Re-Evaluation Time: 21:50 Change: Improved Comment: Pt tolerated PO well GIGU Course/Dx - Course Course Of Treatment: Pt is a 33 year old male recently diagnosed with left renal infarct. Pt was discharged home. Pt took oxycodone at 2pm and then started to vomit. Pt has no pain at this time. Pt stated he took the oxycodone because he had mild pain. Pt will be discharge home with a prescription for Reglan. He is agreeable with this plan. - Diagnoses Provider Diagnoses: Vomiting Discharge - Sign-Out/Discharge Documenting (check all that apply): Discharge/Admit/Transfer - Discharge home - Discharge Plan Condition: Stable Disposition: HOME Prescriptions: Metoclopramide TAB* [Reglan TAB*] 10 mg PO Q6H PRN #30 tab PRN Reason: Nausea/Vomiting Patient Education Materials: Acute Nausea and Vomiting (ED), Metoclopramide ( By mouth) Referrals: [facility] [place] PHYSICIAN REFERRAL [Outside] - 3 Days Additional Instructions: INCREASE YOUR DRINKING OF WATER RETURN TO THE EMERGENCY DEPARTMENT FOR NEW OR WORSENING SYMPTOMS The documentation as recorded by the Cathy hay Emily accurately reflects the service I personally performed and the decisions made by me, Le Islas MD.
[2018-04-23 22:09] VITALS: BP 132/69
== END 2018-04-23 22:08 | disposition home or self-care (01) ==
LOC: ED 19:12
DX: R11.10 Vomiting, unspecified (principal); J45.909 Unspecified asthma, uncomplicated; Z87.891 Personal history of nicotine dependence; N28.0 Ischemia and infarction of kidney
CPT/HCPCS: 36415; 80053; 81003; 81015; 82150; 83690; 85025; 87086; 96360; 96374; 99284; J2765

== ENCOUNTER 2018-04-24 04:46 | Inpatient (IN) | payer OTHER ==
[2018-04-24] MEDS ORDERED: Metoclopramide IV* 5 MG/ML 2 ML VIAL IV SLOW PU ONE (04:54)
[2018-04-24] MEDS ORDERED: NS 0.9% 1000 ML* 1,000 ML IV ONE (04:54)
[2018-04-24 05:09] LABS: ABS Basophils 0 10^3/ul (0-0.2); ABS Eosinophils 0 10^3/ul (0-0.6); ABS Lymphocytes 0.9 10^3/ul (1.0-4.8); ABS Monocytes 0.7 10^3/ul (0-0.8); ABS Neutrophils 7.4 10^3/ul (1.5-7.7); ABS Nucleated RBC 0 10^3/ul; Eosinophil % 0 % (0-6); Hematocrit 40 % (42-52); Hemoglobin 13.9 g/dl (14.0-18.0); Lymphocyte % 9.6 % (25-47); Mean Corpuscular HGB Conc 35 g/dl (31-36); Mean Corpuscular Hemoglobin 30 pg (27-31); Mean Corpuscular Volume 87 fL (80-94); Mean Platelet Volume 8.1 um3 (7.4-10.4); Nucleated Red Blood Cells % 0; Platelet Count 263 10^3/ul (150-450); Red Blood Count 4.58 10^6/ul (4.0-5.4); Red Cell Distribution Width 13 % (10.5-15)
[2018-04-24 05:21] LABS: Urine Appearance Clear; Urine Blood 2+ (Negative); Urine Color Yellow; Urine Ketones 2+ (Negative); Urine Protein 2+(100 mg/dL) (Negative); Urine Specific Gravity 1.027 (1.010-1.030); Urine Urobilinogen Positive (Negative)
[2018-04-24 05:22] LABS: EGFR Non-African American 50.5 (>60)
[2018-04-24] MEDS ORDERED: Albuterol 2.5 MG/3 ML NEB.SOL* (0.083%) INH PRN (05:40)
[2018-04-24] MEDS ORDERED: Acetaminophen TAB* 325 MG PO PRN (05:40)
[2018-04-24] MEDS ORDERED: Ondansetron ODT TAB* 4 MG PO PRN (05:40)
--- NOTE | 2018-04-24 05:42 | ED ---
Cathy Berg Emily, scribed for Le Islas MD on 04/24/18 at 0505 . GI/ HPI - HPI Summary HPI Summary: This patient is a 33 year old M presenting to [facility] accompanied by family with a chief complaint of vomiting that began yesterday. The patient rates the pain 6 /10 in severity. Symptoms aggravated by nothing. Symptoms alleviated by nothing. Pt reports abd pain and nausea. Pt was discharged from the emergency department yesterday night for these symptoms. Pt states he returned home, drank some water, and vomited again. - History of Current Complaint Chief Complaint: EDNauseaVomitDiarrh Time Seen by Provider: 04/24/18 04:51 Stated Complaint: NAUSEA/VOMITING Hx Obtained From: Patient Onset/Duration: Started Hours Ago, Still Present Timing: Constant Severity: Moderate Current Severity: Moderate Pain Intensity: 6 Associated Signs and Symptoms: Positive: Nausea, Vomiting Aggravating Factor(s): Nothing Alleviating Factor(s): Nothing - Additional Pertinent History Primary Care Physician: NEL - Allergy/Home Medications Allergies/Adverse Reactions: Allergies Allergy/AdvReac Type Severity Reaction Status Date / Time No Known Allergies Allergy Verified 04/24/18 04:49 PMH/Surg Hx/FS Hx/Imm Hx Previously Healthy: No Endocrine/Hematology History: Denies: Hx Diabetes, Hx Thyroid Disease Cardiovascular History: Denies: Hx Hypertension Respiratory History: Reports: Hx Asthma - uses albuterol as needed Denies: Hx Chronic Obstructive Pulmonary Disease (COPD) GI History: Denies: Hx Ulcer Sensory History: Denies: Hx Contacts or Glasses, Hx Hearing Aid Opthamlomology History: Denies: Hx Contacts or Glasses - Surgical History Surgery Procedure, Year, and Place: cleft palate repaired at 18 months of age. - Immunization History Date of Tetanus Vaccine: utd Date of Influenza Vaccine: none Infectious Disease History: No Infectious Disease History: Denies: Hx Hepatitis, Hx Human Immunodeficiency Virus (HIV), History Other Infectious Disease, Traveled Outside the [place] in Last 30 Days - Family History Known Family History: Positive: Hypertension - Social History Occupation: Employed Full-time Lives: With Family Alcohol Use: Occasionally Substance Use Type: Reports: None Smoking Status (MU): Former Smoker Have You Smoked in the Last Year: No Review of Systems Negative: Fever Positive: Abdominal Pain, Vomiting, Nausea All Other Systems Reviewed And Are Negative: Yes Physical Exam - Summary Physical Exam Summary: VITAL SIGNS: Reviewed. GENERAL: ~Patient is a well-developed and nourished male who is lying comfortable in the stretcher. Patient is not in any acute respiratory distress. HEAD AND FACE: No signs of trauma. No ecchymosis, hematomas or skull depressions. No sinus tenderness. EYES: PERRLA, EOMI x 2, No injected conjunctiva, no nystagmus. EARS: Hearing grossly intact. Ear canals and tympanic membranes are within normal limits. MOUTH: Oropharynx within normal limits. NECK: Supple, trachea is midline, no adenopathy, no JVD, no carotid bruit, no c- spine tenderness, neck with full ROM. CHEST: Symmetric, no tenderness at palpation LUNGS: Clear to auscultation bilaterally. No wheezing or crackles. CVS: Regular rate and rhythm, S1 and S2 present, no murmurs or gallops appreciated. ABDOMEN: Soft, non-tender. No signs of distention. No rebound no guarding, and no masses palpated. Bowel sounds are normal. EXTREMITIES: FROM in all major joints, no edema, no cyanosis or clubbing. NEURO: Alert and oriented x 3. No acute neurological deficits. Speech is normal and follows commands. SKIN: Dry and warm Triage Information Reviewed: Yes Vital Signs On Initial Exam: Initial Vitals Temp Pulse Resp BP Pulse Ox 98.2 F 66 18 157/94 100 04/24/18 04:48 04/24/18 04:48 04/24/18 04:48 04/24/18 04:48 04/24/18 04:48 Vital Signs Reviewed: Yes Diagnostics - Vital Signs Vital Signs Temp Pulse Resp BP Pulse Ox 04/24/18 04:48 98.2 F 66 18 157/94 100 - Laboratory Result Diagrams: 04/24/18 04:56 Lab Statement: Any lab studies that have been ordered have been reviewed, and results considered in the medical decision making process. Re-Evaluation - Re-Evaluation First Eval Re-Evaluation Time: 05:16 Change: Unchanged Comment: Discussed plan of care with pt GIGU Course/Dx - Course Course Of Treatment: This patient is a 33 year old M presenting to [facility] accompanied by family with a chief complaint of vomiting that began yesterday. Pt was discharged from the emergency department yesterday night for these symptoms. Pt states he returned home, drank some water, and vomited again. Consult with Dr. Real (hospitalist) at 0512. He agrees to admit pt for further evaluation. - Diagnoses Provider Diagnoses: Vomiting - Physician Notifications Discussed Care Of Patient With: Les Real Time Discussed With Above Provider: 05:12 Instructed by Provider To: Other - Consult with Dr. Real (hospitalist) at 0512. He agrees to admit pt for further evaluation. Discharge - Sign-Out/Discharge Documenting (check all that apply): Discharge/Admit/Transfer - Admit to [facility] - Discharge Plan Condition: Stable Disposition: ADMITTED TO [facility] Referrals: No Primary Care Phys,NOPCP [Primary Care Provider] - The documentation as recorded by the Cathy hay Emily accurately reflects the service I personally performed and the decisions made by me, Le Islas MD.
--- NOTE | 2018-04-24 05:48 | HP ---
H&P (Free Text) History and Physical: PCP: none Date/Time: 04/24/2018 0530 CC: L flank pain HPI: Mr Melgoza is a 33YO male HX asthma admitted [place] [facility] [place]04[place]22[place] for acute L renal infarct represented on the evening of 04/23/2018 with N/V. ED work up was negative and he was able to be discharged after receiving metoclopramide. Unfortunately upon arriving home, he began drinking water and vomited again prompting representation. He reports sweats associated with emesis , but denies black/bloody content, F/C, diarrhea, chest pain, SOB, or other issues. He will be placed in observation for anti-emetics & IVFs. PMedHx asthma L renal infarct, subacute atrophic R kidney Ambulatory Orders Nursing to reconcile. Albuterol HFA INHALER* [Ventolin HFA Inhaler*] 2 puff INH Q4H PRN 11/07/12 Ciprofloxacin TAB* [Cipro 500 MG TAB*] 500 mg PO BID 14 Days #28 tab 04/19/18 Ondansetron ODT TAB* [Zofran 4 MG Odt TAB*] 4 mg PO Q6H PRN 5 Days #20 tab.odt 04/19/18 Allergies No Known Allergies Allergy (Verified 04/20/18 22:14) PSurgHx cleft palate repair SocHx: no tobacco, occasional alcohol, no recreational drugs; , lives with his , 3 children; works for a [employer]; full code status FamHx: Mother: alive w/ asthma; Father: alive w/ AFIB & DM ROS: as above, otherwise reviewed and all were negative vitals: Vital Signs Temp 36.8 C 04/24/18 04:48 Pulse 66 04/24/18 04:48 Resp 18 04/24/18 04:48 BP 157/94 04/24/18 04:48 Pulse Ox 100 04/24/18 04:48 Intake & Output 04/23/18 04/23/18 04/24/18 11:59 23:59 11:59 Weight 81.647 kg Constitutional: NAD, normally developed, well-nourished white male HEENM: atraumatic; sclera/conjunctiva: anicteric/clear; hearing: clinically intact; oropharynx: clear, mucosa moist Neck: soft tissue: non-tender; thyroid: normal Pulmonary: clear to auscultation bilaterally, good aeration, no accessory muscle use CV: BR/RR, normal S1S2, no carotid bruit, no jugular venous distention, 2+ B DP/ PT, no edema Abdominal: soft, non-distended, non-tender, no rebound/guarding/rigidity, normoactive bowel sounds, no hepatosplenomegaly or masses, mild L costovertebral angle tenderness Musculoskeletal: general: grossly intact, non-tender Integumental: normal appearance and texture of exposed skin Psychiatric orientation: AA&O to PPS affect: calm mood: cooperative eye contact: fair content: reliable responses: timely insight: good Testing: Lab Results 04/24/18 04/24/18 04/24/18 Range/Units 04:56 04:56 05:07 WBC 9.0 (3.5-10.8) 10^3/ul RBC 4.58 (4.0-5.4) 10^6/ul Hgb 13.9 L (14.0-18.0) g/dl Hct 40 L (42-52) % MCV 87 (80-94) fL MCH 30 (27-31) pg MCHC 35 (31-36) g/dl RDW 13 (10.5-15) % Plt Count 263 (150-450) 10^3/ul MPV 8.1 (7.4-10.4) um3 Neut % (Auto) 82.5 (38-83) % Lymph % (Auto) 9.6 L (25-47) % [place] % (Auto) 7.5 H (0-7) % Eos % (Auto) 0 (0-6) % Baso % (Auto) 0.4 (0-2) % Absolute Neuts (auto) 7.4 (1.5-7.7) 10^3/ul Absolute Lymphs (auto) 0.9 L (1.0-4.8) 10^3/ul Absolute Monos (auto) 0.7 (0-0.8) 10^3/ul Absolute Eos (auto) 0 (0-0.6) 10^3/ul Absolute Basos (auto) 0 (0-0.2) 10^3/ul Absolute Nucleated RBC 0 10^3/ul Nucleated RBC % 0 Sodium 139 (139-145) mmol/L Potassium 3.6 (3.5-5.0) mmol/L Chloride 106 (101-111) mmol/L Carbon Dioxide 22 (22-32) mmol/L Anion Gap 11 (2-11) mmol/L BUN 17 (6-24) mg/dL Creatinine 1.57 H (0.67-1.17) mg/dL Est GFR ( Amer) 65.0 (>60) Est GFR (Non-Af Amer) 50.5 (>60) BUN/Creatinine Ratio 10.8 (8-20) Glucose 134 H (70-100) mg/dL Calcium 10.1 (8.6-10.3) mg/dL Total Bilirubin 0.90 (0.2-1.0) mg/dL AST 23 (13-39) U/L ALT 25 (7-52) U/L Alkaline Phosphatase 59 (34-104) U/L C-Reactive Protein 7.54 H (< 5.00) mg/L Total Protein 7.5 (6.4-8.9) g/dL Albumin 4.7 (3.2-5.2) g/dL Globulin 2.8 (2-4) g/dL Albumin/Globulin Ratio 1.7 (1-3) Amylase 56 (29-103) U/L Lipase 13 (11.0-82.0) U/L Urine Color Yellow Urine Appearance Clear Urine pH 6.0 (5-9) Ur Specific [place] 1.027 (1.010-1.030) Urine Protein 2+(100 mg/dl) A (Negative) Urine Ketones 2+ A (Negative) Urine Blood 2+ A (Negative) Urine Nitrate Negative (Negative) Urine Bilirubin Negative (Negative) Urine Urobilinogen Positive A (Negative) Ur Leukocyte Esterase Negative (Negative) Urine WBC (Auto) Trace(0-5/hpf) (Absent) Urine RBC (Auto) 3+(>10/hpf) A (Absent) Ur Squamous Epith Cells Present A (Absent) Urine Bacteria Absent (Absent) Urine Glucose 1+(50 mg/dl) A (Negative) Impression: 33M presenting with intractable N/V following recent discharge for an acute L renal infarct DIAGNOSIS & PLAN Primary intractable N/V : IVFs : anti-emetics : supportive care subacute L renal infarct in setting of atrophic R kidney : continue current outpatient f/u plans : avoid nephrotoxic agents Secondary asthma, mild intermittent : PRN albuterol Admission Rational: observation for intractable N/V DVTp: ROXIE Code Status: full
[2018-04-24] MEDS: PROCHLORPERAZINE INJ 5 MG/ML 2 ML VIAL IV PRN ×3 (06:17→20:50)
[2018-04-24] MEDS: NS 0.9% 1000 ML* 1,000 ML IV SCH ×2 (08:09→17:04)
[2018-04-24] MEDS: Aspirin 81 mg CHEW TAB* 81 MG TAB.CHEW PO SCH (08:10)
--- NOTE | 2018-04-24 17:03 | PN ---
Progress Note - Progress Note Date of Service: 04/24/18 Note: Met with patient briefly this afternoon. He was admitted this AM for intractable N/V. Pt states overall he is feeling better. He has been able to keep down the clear liquids today. Dr. Peña evaluated the patient this AM and has recommended COREY to evaluate for possible cardioembolic source of the renal infarct as when he looked at the CT abd/pelvis he felt perhaps there were changes in the right kidney c/w previous infarcts. He may need long-term anticoagulation but this will be determined post COREY.
[2018-04-25] MEDS: NS 0.9% 1000 ML* 1,000 ML IV SCH ×2 (01:20→14:49)
[2018-04-25] MEDS: PROCHLORPERAZINE INJ 5 MG/ML 2 ML VIAL IV PRN ×3 (02:51→21:01)
--- NOTE | 2018-04-25 05:46 | CONS ---
AMENDED REPORT NOW INCLUDES DATE OF CONSULT NEPHROLOGY CONSULTATION: DATE OF CONSULT: 04/24/18 HISTORY OF PRESENT ILLNESS: Mr. Melgoza is a 33-year-old gentleman, who was admitted a few days ago because of rather sudden onset of crescendo left flank pain. He was admitted to the hospital and found to have a probable left segmental renal infarct. The CT scan also suggested previous infarcts to his right kidney and the right kidney was somewhat atrophic. He was doing reasonably well with regard to his discomfort and he was discharged home. At home, he began to have nausea and vomiting, which was intractable. He was unable to hold fluids and he was readmitted to the hospital. He is feeling much better at the present time. He has noted no dysuria, frequency, urgency, gross hematuria, foaming urine. No edema. PAST MEDICAL HISTORY: His previous medical history is significant for asthma. Of significance, approximately 10 years ago, he had similar discomfort noted to the right side. He also had some anterior abdominal discomfort and underwent an evaluation for mostly GI complaints, which was unremarkable. MEDICATIONS: Included: 1. Albuterol metered dose inhaler 2 puffs every 4 hours p.r.n. 2. Ciprofloxacin 500 mg b.i.d. 3. Ondansetron 4 mg every 6 hours p.r.n. ALLERGIES: He has no medical allergies. SOCIAL HISTORY: He does not use tobacco. No IV drugs. He is , lives with his . 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 REVIEW OF SYSTEMS: No visual disturbances. No hearing problems. No swallowing difficulties. No arthritic complaints. No nonsteroidal antiinflammatory agents. No edema. No neurologic complaints. PHYSICAL EXAM: He is a well-developed, well-nourished, white gentleman who appears to be quite comfortable. He is afebrile. His blood pressure is 123/53 with a pulse of 61, respirations are 18. He is anicteric. His extraocular muscles are intact. Mucous membranes are moist. There is no jugular venous distention. The chest is clear. The heart revealed a regular rhythm without murmurs. The abdomen is soft and nontender. There is no CVA tenderness. Bowel sounds are positive. Bones, Joints, Extremities: Revealed no cyanosis, clubbing, or edema. DIAGNOSTIC STUDIES/LAB DATA: Review of his laboratory studies reveals a white count of 9000, hemoglobin of 13.9, platelet count of 263,000. Normal coagulation studies. His electrolytes are within normal limits. BUN of 17; creatinine 1.57, it was 1.75 on presentation to the hospital on his initial hospitalization; glucose of 134; magnesium 1.8. He had a slightly elevated LDH at 438. Urinalysis revealed 2+ protein, 2+ ketones, 2+ blood. Urobilinogen was positive. There were 3+ rbc's. His CT scan of chest and abdomen, which was a CTA revealed no atherosclerotic changes. The great vessels were intact. There was a presumed evolving left renal infarct with previous evidence of infarcts to the right kidney, which was atrophic. DISCUSSION: Ordinarily, renal infarcts would be embolic from a cardiac source, whether a rhythm disturbance such as atrial fibrillation for which we have no evidence or valvular heart disease or perhaps [id number] shunts. Ordinarily with [id number] shunts, there will be risk of stroke and ischemia to one of the extremities as well. In addition, there could be the possibility of hypercoagulable state and evaluation for this has been sent off. There is the possibility of atheroembolic disease for which we have no evidence whatsoever. His eosinophil count has been normal and there was no evidence on his CTA. Dissection of the aorta could also be possible but again, there is no evidence for that. In approximately 30% of cases, no identifiable lesion is found. This raises the issue of how to proceed with therapy. Clearly with rhythm disturbances, anticoagulation is in order. With atheroembolic disease, heparin actually produces a worst outcome, although other anticoagulants are not as problematic clearly in a person, who has endocarditis that has to be treated. He should have a transesophageal echocardiogram. He did have transthoracic echocardiogram, which was unrevealing. In a person with no identifiable sources , the issue of anticoagulation is problematic; however, considering we have an atrophic right kidney, which apparently had had more than 1 infarction plus a left renal infarction, I think in this setting, anticoagulation would probably be in order, then the question comes as to which anticoagulant to choose. I would probably choose Eliquis. Although we have to consider the risks of bleeding, I think the risks of sequential embolization with potential renal failure probably outweigh the risks of anticoagulation. I have discussed the case with Dr. Saldana. [id number]/[facility] #: [id number] DANICA
[2018-04-25] MEDS ORDERED: hydrALAZINE IV* 20 MG/ML VIAL IV SLOW PU PRN (08:20)
[2018-04-25] MEDS: Aspirin 81 mg CHEW TAB* 81 MG TAB.CHEW PO SCH (08:47)
[2018-04-25] MEDS ORDERED: Naloxone* 0.4 MG/ML 1 ML VIAL ONE (10:08)
[2018-04-25] MEDS ORDERED: fentaNYL* 50 MCG/ML 2 ML VIAL (100 MCG VIAL) ONE (10:08)
[2018-04-25] MEDS ORDERED: Midazolam* 1 MG/ML 10 ML VIAL (10 MG) ONE (10:08)
[2018-04-25] MEDS ORDERED: Flumazenil* 0.1 MG/ML 5 ML MDV ONE (10:08)
[2018-04-25] MEDS ORDERED: Lidocaine 2% VISCOUS* 15 ML UDC ONE (10:09)
[2018-04-25] MEDS ORDERED: Ondansetron INJ* 2 MG/ML VIAL ONE (10:59)
[2018-04-25] MEDS ORDERED: Metoclopramide IV* 5 MG/ML 2 ML VIAL IV SLOW PU ONE (14:54)
--- NOTE | 2018-04-25 14:54 | TEE ---
Patient: PEDRO LO [facility] Rec#: [id number] : 1985 Date: 04/25/2018 Age: 33y Height: 182.9 cm / 72.0 in Weight: 78.9 kg / 173.9 lbs Sex: M BSA: 2 Room#: [facility] Admit Date#: 04/21/2018 Type: Inpatient Referring: Oanh Saldana DO Performing: Alva Bauer MD Reading: Alva Bauer MD Director Of Community Life: Carey Vu RN RDCS Nurse: Tamica Franz RN Transesophageal Echocardiogram Indication: Peripheral embolic event BP: 154/96 HR: 75 Rhythm: NSR Findings History: Asthma, currently admitted with renal infarctions Technical Comments: The study quality is good. Left Ventricle: The left ventricular chamber size is normal. Global left ventricular wall motion and contractility are within normal limits. There is normal left ventricular systolic function. The estimated ejection fraction is 60-65%. The assessment of diastolic function is non-diagnostic. Left Atrium: The left atrium is mildly dilated. The left atrial appendage velocity is normal. There is no thrombus visualized in the left atrial appendage. Right Ventricle: The right ventricular chamber size and systolic function are within normal limits. Right Atrium: The right atrium is mildly dilated. There is predominant [id number] shunting across the interatrial septum. There were late bubbles seen in the left atrium. A patent foramen ovale is demonstrated by color Doppler. There is evidence of an atrial septal aneurysm. Aortic Valve: The aortic valve is trileaflet. Systolic excursion of the aortic valve is normal. There is no evidence of aortic regurgitation. There is no evidence of aortic stenosis. Mitral Valve: The mitral valve leaflets appear normal. There is mild mitral regurgitation. There is no evidence of mitral stenosis. Tricuspid Valve: The tricuspid valve leaflets are normal. There is trace tricuspid regurgitation. There is no tricuspid stenosis. Pulmonic Valve: The pulmonic valve appears normal. There is a trace pulmonic regurgitation. There is no pulmonic stenosis. Pericardium: There is no significant pericardial effusion. Aorta: There is no dilatation of the ascending aorta. There is no dilation of the aortic root.There is minimal atherosclerotic plaque seen in the aorta. Pulmonary Artery: The main pulmonary artery appears normal. Venous: The inferior vena cava appears normal. The pulmonary veins appear normal. 3 of 4 pulmonary veins are visualized. The superior vena cava appears normal. COREY Procedures: All standard views were attempted within the limitations of patient tolerance and safety. History and physical as well as labs were reviewed. The patient was in a fasting state. Risks and benefits of the procedure, including alternatives, were discussed and written informed consent was obtained. The patient and/or their health care telesales representative expressed understanding of the procedure, risks and benefits. Baseline and continuous monitoring of blood pressure, heart rate, pulse oximetry and heart rhythm was performed throughout the procedure. The appropriate time-out procedure was performed as per [facility] protocol. The patient was placed in the left lateral decubitus position. The patient's posterior pharynx was anesthetized with 20ml of 2% viscous lidocaine. The patient received IV Midazolam with a total dose of 9 mg. The patient received IV Fentanyl with a total dose of 25 mcg. An oral bite block was inserted for protection of oral dentition. The multiplane transesophageal echocardiogram probe was inserted through the posterior oropharynx and advanced into the esophagus without difficulty. Multiple 2D images were obtained of the heart and its related structures. Color flow Doppler was used for evaluation. Spectral Doppler was also used. The atrial septum was interrogated with color flow Doppler. At the conclusion of the procedure the probe was removed with continuous suction without complications. The patient tolerated the procedure with no apparent complications. Contrast: Normal saline was used as contrast for the bubble study. Images 50 and 53. Conclusions The left ventricular chamber size is normal. There is normal left ventricular systolic function. The estimated ejection fraction is 60-65%. The right ventricular chamber size and systolic function are within normal limits. The intra atrial septum was aneurismal, evidence of a PFO based on color Doppler with left to right shunting. Bubble study showed late bubbles, unable to confirm source of shunt via bubbles. All valves appeared structurally normal with good function. There is mild mitral regurgitation. There is trace tricuspid regurgitation. Measurements Name Value Normal Range Aortic Annulus 2.1 cm (1.4 - 2.6) Ao root diameter (2D) 2.8 cm (2.1 - 3.5) Ascending Ao 2.6 cm (2.1 - 3.4) Name Value Normal Range MV E-wave Vmax 0.8 m/sec - MV deceleration time 112 msec - MV A-wave Vmax 0.5 m/sec - MV E:A ratio 1.6 ratio -
[2018-04-25] MEDS ORDERED: Metoclopramide IV* 5 MG/ML 2 ML VIAL ONE (14:57)
--- NOTE | 2018-04-25 15:31 | PN ---
Subjective Date of Service: 04/25/18 Interval History: HOSPITALIST PROGRESS NOTE Patient seen and examined at bedside. Care reviewed and d/w Jennifer Marlow RN. He continues to complain of persistent nausea. Family History: Unchanged from Admission Social History: Unchanged from Admission Past Medical History: Unchanged from Admission Objective Active Medications: Acetaminophen (Tylenol Tab*) 650 mg PO Q6H PRN PRN Reason: FEVER/PAIN Last Admin: 04/24/18 11:11 Dose: 650 mg Albuterol (Ventolin 2.5 Mg/3 Ml Neb.Tiffany*) 2.5 mg INH Q2H PRN PRN Reason: SOB/WHEEZING Aspirin (Aspirin 81 Mg Chew Tab*) 81 mg PO DAILY [facility] Last Admin: 04/25/18 08:47 Dose: 81 mg Hydralazine HCl (Apresoline Iv*) 5 mg IV SLOW PU Q6H PRN PRN Reason: SBP>180 Sodium Chloride (Ns 0.9% 1000 Ml*) 1,000 mls @ 125 mls/hr IV PER RATE [facility] Last Admin: 04/25/18 14:49 Dose: 125 mls/hr Ondansetron HCl (Zofran Odt Tab*) 4 mg PO Q6H PRN PRN Reason: NAUSEA/VOMITING Last Admin: 04/25/18 14:30 Dose: 4 mg Prochlorperazine Edisylate (Compazine Inj*) 10 mg IV Q6H PRN PRN Reason: NAUSEA Last Admin: 04/25/18 09:13 Dose: 10 mg Vital Signs - 8 hr 04/25/18 04/25/18 13:15 14:27 Temperature 98.4 F 99.1 F Pulse Rate 77 73 Respiratory 16 16 Rate Blood Pressure 154/78 149/77 (mmHg) O2 Sat by Pulse 99 98 Oximetry Oxygen Devices in Use Now: None Appearance: Young gentleman lying in bed in NAD. Eyes: No Scleral Icterus Ears/Nose/Mouth/Throat: Mucous Membranes Moist Neck: Trachea Midline Respiratory: Symmetrical Chest Expansion and Respiratory Effort, Clear to Auscultation Cardiovascular: RRR - Normal S1 and S2 Abdominal: NL Sounds; No Tenderness; No Distention Neurological: Alert and Oriented x 3 Result Diagrams: 04/24/18 04:56 04/24/18 04:56 Assess/Plan/Problems-Billing Assessment: Mr Melgoza is a 33yo M with PMH of asthma, who presented with left flank pain found to have left kidney infarct, who returned to the ED with pain, N/V. - Patient Problems (1) Renal infarction Comment: - Source is unclear, but patient already has atrophic right kidney. - Awaiting COREY and check hypercoagulable work up. - Continue symptomatic treatment. - Continue Telemetry looking for Afib. (2) DVT prophylaxis Comment: - SQ heparin. (3) Full code status Status and Disposition: Change to inpatient.
[2018-04-25] MEDS: Heparin VIAL(*) 5000 UNITS/ML VIAL (FIVE THOUSAND) SUBCUT SCH (21:01)
[2018-04-26] MEDS: NS 0.9% 1000 ML* 1,000 ML IV SCH ×2 (00:35→10:29)
[2018-04-26] MEDS: Heparin VIAL(*) 5000 UNITS/ML VIAL (FIVE THOUSAND) SUBCUT SCH (06:10)
[2018-04-26] MEDS: Aspirin 81 mg CHEW TAB* 81 MG TAB.CHEW PO SCH (08:41)
[2018-04-26] MEDS: PROCHLORPERAZINE INJ 5 MG/ML 2 ML VIAL IV PRN (08:49)
[2018-04-26] MEDS ORDERED: Apixaban* 5 MG TAB PO SCH (11:00)
[2018-04-26 12:45] VITALS: BP 154/79
--- NOTE | 2018-04-26 13:18 | RAD ---
INDICATION: Renal infarct, patent foramen ovale evaluate for deep venous thrombosis. COMPARISON: There are no prior studies available for comparison. TECHNIQUE: Multiple real-time, color flow and Doppler tracings of both lower extremities were obtained. FINDINGS: The common femoral, femoral, profunda femoral and popliteal veins all demonstrate normal compressibility, augmentation with compression and phasic response with respiration. The posterior tibial and peroneal veins demonstrate normal compressibility and augmentation with compression. IMPRESSION: NO EVIDENCE FOR DEEP VENOUS THROMBOSIS.
--- NOTE | 2018-04-27 11:36 | DS ---
CC: Enoch Oscar MD at [facility]; Dr. Peña; Dr. Clifford DISCHARGE SUMMARY: DATE OF ADMISSION: 04/24/18 DATE OF DISCHARGE: 04/26/18 PRIMARY CARE PROVIDER: Giuseppe primary care provider Dr. Clifford. SERVICE ELECTRICIAN: Dr. Peña. DISCHARGE DIAGNOSES: 1. Subacute left renal infarct. 2. Chronic kidney disease stage 2 to 3. 3. Patent foramen ovale. Undergoing workup for probable hypercoagulable condition. MEDICATION LIST: 1. Metoclopramide 10 mg p.o. q.6 hours p.r.n. nausea and vomiting. 2. Acetaminophen 650 mg p.o. q.6 hours p.r.n. pain or fever. 3. Apixaban 5 mg p.o. b.i.d. HOSPITAL COURSE: Mr. Melgoza is a 33-year-old male with past medical history of asthma who presented to the emergency room on 04/23/18 with complaints of left flank pain, nausea and vomiting. The patient has had multiple visits to the emergency room starting on 04/19/18. On that visit, he complained of left flank pain and was diagnosed with left pyelonephritis because he had urinalysis with trace LE, foul smelling urine, and left CVA tenderness. He was discharged on ciprofloxacin. On 04/20/18, he presented to the emergency room with the same complaints. He had a CT of the abdomen and pelvis that showed no hydronephrosis or nephrolithiasis. The right kidney was described as atrophic/ hypoplastic. He received symptomatic treatment in the emergency room and his creatinine was found to be 1.75. He was discharged from the emergency room to follow up with Dr. Peña as an outpatient. He returned to the emergency room on 04/21/18, once again with complaints of left flank pain, nausea, and vomiting. As the patient at that point had had daily ER visits for 3 days, he was admitted to the hospital for further evaluation and symptomatic treatment. A CT of the abdomen and pelvis with contrast was done at that time and it showed a wedge shaped hypoenhancement of the left kidney and the differential includes renal infarct. The patient was admitted to the medical floor under the impression of possible sepsis, as the patient had leukocytosis and fever secondary to pyelonephritis and left renal infarct, but possibility of infection was ruled out as all his cultures were negative. During that admission, he had a transthoracic echocardiogram that showed ejection fraction of 55% to 60%. A PFO was not demonstrated with color Doppler and agitated contrast. The patient had a CTA of the chest and abdomen that showed no CT evidence of atherosclerotic change of the thoracic aorta, aortic aneurysm or dissection. The great vessels from the aorta and visceral branches appeared widely patent with multiple bilateral renal arteries, presumed evolving infarct of the left kidney with evidence of prior infarct of the right kidney with an atrophic right kidney. No CT evidence of acute pulmonary embolic disease. The patient was discharged on 04/22/18 on aspirin and oxycodone to follow up with Dr. Peña as outpatient. The plan was for him to have hypercoagulable workup done as outpatient and to follow up with [facility] and with Dr. Peña, but unfortunately this did not happen as the patient returned to the emergency room on 04/23/18 with the same complaints of abdominal pain, nausea, and vomiting. He was discharged from the emergency room after receiving symptomatic treatment and once again on 04/24/18, he came to the emergency room and was admitted one more time. At that point, decision was made to pursue a transesophageal echocardiogram that showed ejection fraction 60 % to 65% with intraatrial septal aneurysm with evidence of a PFO based on color Doppler with left to right shunting. Bubble study showed late bubbles, unable to confirm source of the shunt by bubbles. The patient was seen in consultation by Nephrology (Dr. Peña). Dr. Peña's discussion includes the fact that renal infarct would be embolic from cardiac source, whether a rhythm disturbance such as atrial fibrillation or valvular heart disease or right to left shunt. Ordinarily with [id number] shunt there will be risk of stroke and ischemia to one of the extremities as well. In addition, there could be possibility of a hypercoagulable state and evaluation has been sent off. There is a possibility of atheroembolic disease but his CTA showed no evidence whatsoever including dissection of the aorta. Dr. Peña recommended anticoagulation even though we do not have a source at this point, especially considering that he is a young patient that already has a right atrophic kidney and more than one infarction in the area plus a left renal infarction. His recommendation was to start with Eliquis. Hypercoagulable workup including antithrombin 3, cardiolipin, IgG, IgA and factor V Leiden, lupus anticoagulant, protein C, protein S, prothrombin gene mutation were all sent and the results are pending at the time of this dictation. It should be followed as outpatient. The patient had a lower extremity Doppler to look for a source of paradoxical embolus, but the study was negative for DVT. He was monitored on telemetry and no atrial fibrillation was seen. If his hypercoagulable workup is negative, I believe he will benefit with event monitor placement as outpatient. At this point, the etiology of his renal infarct is not clear but what is clear is that he already has sequelae to his right kidney and this is already affecting his renal function. I had a long conversation with the patient and his about risks and benefits of anticoagulation including but not limited to risk of bleeding and . The patient is in agreement with the treatment. He is still symptomatic with nausea, although his vomiting and pain have improved. I offered to observe him another night to make sure he would tolerate the anticoagulant well, but the patient states that he has to go home today because he is not able to rest while in the hospital. I brought to his attention the fact that he has been in the hospital daily since 04/19/18 and he will be better served by staying in the hospital little longer, but he is adamant that he needs to be discharged today. At this point, he states that his symptoms are tolerable. His vital signs are stable and the patient understands the risk of his decision. I believe at this point he does not need to leave against medical advice as he is stable, but I am concerned that his symptoms will recur and he will return to the emergency room and probably be admitted again. We scheduled a followup with Dr. Enoch Oscar at [facility] tomorrow, 04/27/18 at 11:30 a.m. and the patient was encouraged to keep this appointment. We will also schedule an appointment to see Dr. Peña in 1 to 2 weeks and he will establish primary care with Dr. Clifford with an appointment scheduled for 06/12/18 at 14:45 a.m. The patient will be discharged home today. PHYSICAL EXAMINATION: Vital Signs: Temperature 98.8, heart rate is 72, respiratory rate is 18, oxygen saturation 98% on room air, blood pressure is 154 /74. General: The patient is a young gentleman lying in bed in no acute distress. CVS: S1, S2, regular rate and rhythm. Chest: Breath sounds bilaterally with no added sounds. Abdomen: Soft. Nontender, nondistended. Bowel sounds are present. Neuro: He is alert and oriented x3, able to move all 4 extremities. DIET: Regular diet. ACTIVITIES: As tolerated. 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 DISPOSITION: Home. STATUS IN THE HOSPITAL: Inpatient. Please keep in mind this is a summarized version of this patient's hospital stay. If you need more information, please feel free to call me at [phone] or please obtain full medical records. TIME SPENT: Approximately 45 minutes was spent to complete this discharge. [id number]/CPS #: [id number] DANICA
[2018-04-27 18:01] LABS: Prothrombin 20210 Mutation Negative (Negative)
== END 2018-04-26 15:15 | disposition home or self-care (01) | DRG 468 ==
LOC: ED 04:46 → MED 05:16 → OBSVTOIN 04-25 15:31
PROVIDERS: ADMIT Hospitalist; ATTEND Internal Medicine
PROC: B24BZZ4 Ultrasonography of Heart with Aorta, Transesophageal (ICD-10-PCS; principal; 2018-04-25 10:30)
DX: N28.0 Ischemia and infarction of kidney (principal); Q21.1 Atrial septal defect; J45.909 Unspecified asthma, uncomplicated; N18.2 Chronic kidney disease, stage 2 (mild); N26.1 Atrophy of kidney (terminal); Z72.89 Other problems related to lifestyle; Z82.5 Family history of asthma and other chronic lower respiratory diseases; Z82.49 Family history of ischemic heart disease and other diseases of the circulatory system; Z83.3 Family history of diabetes mellitus; Z79.01 Long term (current) use of anticoagulants; Z87.891 Personal history of nicotine dependence
CPT/HCPCS: 36415; 80048; 80053; 81003; 81240; 81241; 82150; 83690; 85025; 85300; 85303; 85306; 85610; 85613; 85730; 86140; 86147; 93005; 93312; 93325; 93970; 96374; 99156; 99284; A9270-GY; G0378; J0780; J1644; J2250; J2310; J2405; J2765; J3010

== ENCOUNTER 2019-10-01 17:30 | Emergency (ER) | payer OTHER ==
[2019-10-01 18:10] VITALS: BP 140/90
--- NOTE | 2019-10-01 19:01 | UC ---
Respiratory Complaint HPI - HPI Summary HPI Summary: 34 year old male with + h/o PNA< bronchitis in the past presets with chest congestion/ tightness with breathing, coughing, ? fever tactile, fatigue. Concerned for bronchitis. S/S x 4 days, no improvement. Coughing worse at night, + productive - History of Current Complaint Chief Complaint: UCRespiratory Stated Complaint: URI Time Seen by Provider: 10/01/19 18:52 Hx Obtained From: Patient Onset/Duration: Sudden Onset, Lasting Days Severity Initially: Moderate Severity Currently: Moderate Pain Intensity: 6 Pain Scale Used: 0-10 Numeric Character: Cough: Productive Aggravating Factors: Deep Breaths, Recumbent Position Associated Signs And Symptoms: Positive: Dyspnea, Fever, Chills. Negative: Nasal Congestion - Allergies/Home Medications Allergies/Adverse Reactions: Allergies Allergy/AdvReac Type Severity Reaction Status Date / Time No Known Allergies Allergy Verified 10/01/19 18:10 Home Medications: Home Medications Acetaminophen TAB* [Tylenol TAB*] 1,500 mg PO Q6H PRN 10/01/19 [History Confirmed 10/01/19] PMH/Surg Hx/FS Hx/Imm Hx Previously Healthy: Yes - Surgical History Surgical History: Yes Surgery Procedure, Year, and Place: cleft palate repaired at 18 months of age. - Family History Known Family History: Positive: Hypertension - Social History Occupation: Employed Full-time Alcohol Use: Weekly Alcohol Amount: 1-2 beers per week Substance Use Type: Marijuana Substance Use Comment - Amount & Last Used: 1-2 x /week Smoking Status (MU): Former Smoker Have You Smoked in the Last Year: No When Did the Patient Quit Smoking/Using Tobacco: 10 years ago - Immunization History Most Recent Influenza Vaccination: never Most Recent Tetanus Shot: UTD Most Recent Pneumonia Vaccination: never Review of Systems All Other Systems Reviewed And Are Negative: Yes Constitutional: Positive: Fever, Chills, Fatigue Respiratory: Positive: Shortness Of Breath, Cough Psychological: Positive: Negative Is Patient Immunocompromised?: No Physical Exam Triage Information Reviewed: Yes Appearance: No Pain Distress, Well-Nourished, Ill-Appearing - mild Vital Signs: Initial Vital Signs Temp 101 F 10/01/19 18:06 Pulse 85 10/01/19 18:06 Resp 18 10/01/19 18:06 BP 140/90 10/01/19 18:06 Pulse Ox 97 10/01/19 18:06 Vital Signs Reviewed: Yes Eyes: Positive: Conjunctiva Clear ENT: Positive: Pharynx normal, TMs normal, Uvula midline. Negative: Tonsillar swelling, Tonsillar exudate, Sinus tenderness Respiratory: Positive: Chest non-tender, No respiratory distress, No accessory muscle use, Rhonchi - R, Wheezing - b/l Cardiovascular: Positive: RRR, No Murmur, Pulses Normal Musculoskeletal Exam: Normal Neurological Exam: Normal Psychological Exam: Normal Respiratory Course/Dx - Course Course Of Treatment: CXR- increased intersitital markings, no PNA visible, reviewed with Dr Nam - Albuerol as needed for shortness of breath every 3-4 hours - Increase fluid intake - ANtibiotics twice daily x 10 days - Return with increased shortness of breath, fever > 102, or new symptoms - Motrin /TYlenol as needed for muscle aches, pains - Differential Dx/Diagnosis Provider Diagnosis: Right middle lobe pneumonia Discharge ED - Sign-Out/Discharge Documenting (check all that apply): Patient Departure All imaging exams completed and their final reports reviewed: Yes - Discharge Plan Condition: Good Disposition: HOME Prescriptions: Albuterol HFA INHALER* [Ventolin HFA Inhaler*] 1 - 2 puff INH Q4H PRN #1 mdi PRN Reason: Shortness Of Breath DOXYcycline CAP(*) [DOXYcycline 100MG CAP(*)] 100 mg PO BID #20 cap Patient Education Materials: Bacterial Pneumonia (ED) Forms: *Work Release Referrals: Jimmy Roy MD [Primary Care Provider] - Additional Instructions: - Albuerol as needed for shortness of breath every 3-4 hours - Increase fluid intake - ANtibiotics twice daily x 10 days - Return with increased shortness of breath, fever > 102, or new symptoms - Motrin /TYlenol as needed for muscle aches, pains - Billing Disposition and Condition Condition: GOOD Disposition: Home
[2019-10-01] MEDS ORDERED: Albuterol 2.5 MG/3 ML NEB.SOL* (0.083%) INH ONE (19:02)
[2019-10-01] MEDS ORDERED: DOXYcycline CAP(*) 100 MG PO ONE (19:05)
--- NOTE | 2019-10-02 10:25 | UC ---
- Progress Note Progress Note: RADIOLOGY REPORT REVIEWED. SMALL RIGHT MIDDLE LOBE INFILTRATE. PATIENT HAS BEEN APPROPRIATELY TREATED WITH DOXYCYCLINE. NO CHANGE IN MANAGEMENT. PATIENT CALLED. LEFT MESSAGE TO CALL BACK. Course/Dx - Diagnoses Provider Diagnoses: Right middle lobe pneumonia Discharge ED - Sign-Out/Discharge Documenting (check all that apply): Post-Discharge Follow Up All imaging exams completed and their final reports reviewed: Yes - Discharge Plan Condition: Good Disposition: HOME Prescriptions: Albuterol HFA INHALER* [Ventolin HFA Inhaler*] 1 - 2 puff INH Q4H PRN #1 mdi PRN Reason: Shortness Of Breath DOXYcycline CAP(*) [DOXYcycline 100MG CAP(*)] 100 mg PO BID #20 cap Patient Education Materials: Bacterial Pneumonia (ED) Forms: *Work Release Referrals: Jimmy Roy MD [Primary Care Provider] - Additional Instructions: - Albuerol as needed for shortness of breath every 3-4 hours - Increase fluid intake - ANtibiotics twice daily x 10 days - Return with increased shortness of breath, fever > 102, or new symptoms - Motrin /TYlenol as needed for muscle aches, pains - Billing Disposition and Condition Condition: GOOD Disposition: Home
--- NOTE | 2019-10-02 10:37 | UC ---
- Progress Note Progress Note: PATIENT RETURNED CALL. INFORMED OF RIGHT MIDDLE LOBE INFILTRATE. ADVISED TO CONTINUE DOXYCYCLINE PRESCRIBED. ALSO RECOMMENDED PATIENT FOLLOW-UP WITH HIS PCP IN 6 WEEKS OR SO FOR REPEAT CHEST X-RAY TO ENSURE INFILTRATE HAS CLEARED. ALL QUESTIONS ANSWERED TO THE BEST OF MY ABILITY. Course/Dx - Diagnoses Provider Diagnoses: Right middle lobe pneumonia Discharge ED - Sign-Out/Discharge Documenting (check all that apply): Post-Discharge Follow Up All imaging exams completed and their final reports reviewed: Yes - Discharge Plan Condition: Good Disposition: HOME Prescriptions: Albuterol HFA INHALER* [Ventolin HFA Inhaler*] 1 - 2 puff INH Q4H PRN #1 mdi PRN Reason: Shortness Of Breath DOXYcycline CAP(*) [DOXYcycline 100MG CAP(*)] 100 mg PO BID #20 cap Patient Education Materials: Bacterial Pneumonia (ED) Forms: *Work Release Referrals: Jimmy Roy MD [Primary Care Provider] - Additional Instructions: - Albuerol as needed for shortness of breath every 3-4 hours - Increase fluid intake - ANtibiotics twice daily x 10 days - Return with increased shortness of breath, fever > 102, or new symptoms - Motrin /TYlenol as needed for muscle aches, pains - Billing Disposition and Condition Condition: GOOD Disposition: Home
== END 2019-10-01 19:45 | disposition home or self-care (01) ==
LOC: UCEAST 17:30
DX: J18.1 Lobar pneumonia, unspecified organism (principal); Z87.891 Personal history of nicotine dependence
CPT/HCPCS: 71046; 99212; A9270-GY; G0463